=== PATIENT | female | born 1950 | race Caucasian/White ===

== ENCOUNTER 2017-01-13 22:14 | Emergency (ER) | payer MEDICARE, OTHER ==
[~2017-01-13] VITALS: Ht 157.5 cm; Wt 86.1 kg
[~2017-01-13 22:14] MED LIST: AMLO5TAB PO; ASPI-730 PO; ATEN-36 PO; CALC-586 PO; COLE625T10 PO; ISOS30TA29 PO; JOINT SUPPORT; LEVO125T71 PO; NITR0.3T6 SL; VITA1CAP64 PO; [UNRECOGNIZED DRUG - OTHER]
--- OUTSIDE RECORDS SUMMARY | 2017-01-13 22:17 | XMS REPORT | Referral Summary ---
Author Author [facility] Organization [facility] Address Unknown Phone Unavailable Care Team Providers Care Designated Broker Name Role Phone Josselin aPrson Primary Care Physician [phone] Encounter VC Date(s): 10/19/15 - 10/19/15 [facility] [address] [place], [place] [address] Discharge Disposition: 01-Home or Self Care Attending Physician: Aquiles Owusu MD Admitting Physician: Aquiles Owusu MD Vital Signs Most recent to 1 oldest [Reference Range]: Respiratory Rate 16 br/min [14-20 br/min] (10/19/15 2:26 PM) Problem List Condition Effective Dates Status Health Status Informant Abnormal involuntary 06/16/10 Active movements(Confirmed) 1 Othr abn function Active study 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(Confirmed) 2 Allergic Active rhinitis(Confirmed)3 Bilateral carpal Resolved tunnel release(Confirmed) Bilateral ulnar Resolved nerve decompression(Confir med) Bladder Active problem(Confirmed)4 Cerebrovascular Resolved accident(Confirmed) section Resolved x2(Confirmed) Chicken Resolved pox(Confirmed) Constipation(Confirm Active ed)5 Coronary Active arteriosclerosis (disorder)(Confirmed ) Coronary Active atherosclerosis(Conf irmed) Depression(Confirmed Active )6 Statin Active intolerance(Confirme d) Dry eyes(Confirmed) Active Follicular 10/20/13 Resolved adenoma-226; Lymphocytic thyroiditis-245.2(Co nfirmed)7 Hx of Angina/chest Resolved pain(Confirmed) Hyperlipidemia(Confi Resolved rmed) Hypertension(Confirm Resolved ed) Hysterectomy(Confirm Resolved ed) R knee Active pain(Confirmed) Lt knee scope Resolved x3(Confirmed) Skin Active cancer(Confirmed)8 Headaches - 1996 Active migraine(Confirmed)9 Non-toxic uninodular Active goiter (disorder)(Confirmed ) Osteoarthrosis site Active unspecified(Confirme d)10 Overweight(Confirmed Active )11 Pneumonia(Confirmed) Active 12 Pure Active hypercholesterolemia (Confirmed)13 Rt ankle torn Resolved tendon- Repaired(Confirmed) Rt knee 11/18/11 Resolved scope(Confirmed) Rt TKA [facility] 06/18/13 Resolved Bu[facility](Confirmed) Rt tknee 09/22/13 Resolved arthroscopic debridement WM [facility](Confirmed) Sinus Active infections(Confirmed )14 Disturbance of skin 03/04/12 Active sensation(Confirmed) 15 Fatty Active liver(Confirmed)16 Torn Active tendon(Confirmed) Headache - 1996 Active tension(Confirmed) Thyroid Resolved disease(Confirmed) Tonsillectomy and Resolved adenoidectomy(Confir med) 1Head tremor. See conversion document. 2See conversion document. 3See conversion document. 4See conversion document. 5See conversion document. 6See conversion document. 7Right thyroid lobectomy 8See conversion document. 9See conversion document. 10See conversion document. 11See conversion document. 12See conversion document. 13See conversion document. 14See conversion document. 15Lt hand numbness. Probable mild CTS. Bilateral upper extremity numbness. See conversion document. 16See conversion document. Allergies, Adverse Reactions, Alerts Substance Reaction Severity Status adenosine caused stroke Severe Active STROKE amoxicillin Intolerance Active caffeine Depression Active sulfamethoxazole Intolerance Active sulfanilamide topical Rash Active Medications amLODIPine 5 mg oral tablet See Instructions, TAKE 1 TABLET DAILY, # 90 tabs, 1 Refill(s), eRx: [facility], TAKE 1 TABLET DAILY Start Date: 06/13/15 Status: Ordered boric acid vaginal boric acid vaginal, See Instructions, 600mg Boric acid vaginal suppositories MF for 3-6 months., # 20 supp, 3 Refill(s), Pharmacy: [facility], 600mg Boric acid vaginal suppositories MF for 3-6 months. Start Date: 08/30/15 Status: Ordered boric acid vaginal boric acid vaginal, See Instructions, 600mg Boric acid vaginal suppositories MF for 3-6 months., # 20 supp, 3 Refill(s), 600mg Boric acid vaginal suppositories qhs x one week then in 2 weeks: MF for 3-6 months. Start Date: 03/31/15 Status: Ordered LEVOTHYRN(S) TAB 0.125MG See Instructions, TAKE 1 TABLET DAILY, # 90 tabs, 1 Refill(s), eRx: [facility], TAKE 1 TABLET DAILY Start Date: 06/13/15 Status: Ordered lidocaine 3% topical gel 1 ann, Topical, BID, as needed for pain, # 28.5 g, 0 Refill(s), Pharmacy: [facility] pharmacy #[id number] Start Date: 10/26/14 Status: Ordered metFORMIN 500 mg oral tablet 500 mg 1 tabs, Oral, Daily, # 90 tabs, 3 Refill(s), [id number], 1 tabs Oral Daily Start Date: 05/03/15 Status: Ordered Miscellaneous DME DME Item ACCU CHECK GLUCOSE METER, LANCETS, AND TEST STRIPS TEST Q AM - FASTING DX: 250.00, See Instructions, # 1 Each, 0 Refill(s), Pharmacy: [facility] pharmacy #[id number], ACCU CHECK GLUCOSE METER, LANCETS, AND TEST STRIPS; TEST Q AM - FASTING; DX: 250.00... Start Date: 02/03/15 Status: Ordered multivitamin Daily, 0 Refill(s) Start Date: 05/14/14 Status: Ordered nitroglycerin 0.3 mg, 0 Refill(s) Start Date: 04/12/14 Status: Ordered Welchol 625 mg oral tablet See Instructions, TAKE 6 TABLETS DAILY, # 540 tabs, 1 Refill(s), eRx: [facility], TAKE 6 TABLETS DAILY Start Date: 06/13/15 Status: Ordered Wellbutrin XL 150 mg/24 hours oral tablet, extended release 150 mg 1 tabs, Oral, q24hr, # 90 tabs, 3 Refill(s), [id number], 1 tabs Oral q24hr Start Date: 05/03/15 Status: Ordered Results No data available for this section Immunizations Vaccine Date Refusal Reason tetanus/diphth/pertuss (Tdap) adult/adol 05/19/13 influenza virus vaccine, inactivated1 10/05/14 influenza virus vaccine, live 08/12/13 influenza virus vaccine, live 10/19/11 pneumococcal 23-polyvalent vaccine 08/12/13 1Result Comment: [10/05/2014] SEE SCANNED DOCUMENT Procedures Procedure Date Related Diagnosis Body Site R knee artroscopic debridement1 2012 Right thyroid lobectomy2 2012 Total knee replacement 2013 R knee scope3 11/18/11 R ankle surgery4 2009 Abnormal stress test Adenoidectomy Appendectomy; Bilateral carpal tunnel release Bilateral ulnar nerve decompression section Hysterectomy L knee scope x35 Tonsillectomy 1[facility]. See NextGen. 2Follicular adenoma, lymphocytic thyroiditis. See NextGen. 3See NextGen. 4Torn tendon. See NextGen. 5See NextGen. Social History Social History Type Response Smoking Status Never smoker Assessment and Plan Extracted from: Title: Office Visit Note Author: Aquiles Owusu MD Date: 10/19/15 Assessment/Plan Right knee pain 65-year-old female with right knee pain and stiffness after a total knee replacement. She also has significant arthrofibrosis, I suspect. We again discussed possible treatment options for this and etiologies. I think most of her trouble has to do with her poor range of motion. Certainly she is stressing her extensor apparatus. She asked about doing another arthroscopy and manipulation, however I am pretty skeptical that this would help much. 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 My recommendation would be to get a bone scan to make sure nothing is loose. I will let her know what that shows once we get that back. We did talk about trying an intra-articular steroid injection to see if this might help at some point. Ordered: [facility] Office Visit Level 3 Est 86233
--- OUTSIDE RECORDS SUMMARY | 2017-01-13 22:18 | XMS REPORT | Continuity of Care Document ---
Author Author [facility] Address [address] [place] [id number] Phone Unavailable Care Team Providers Care Extra Hand Name Role Phone Aleksandar Parson PP Unavailable Richard Mo RP Unavailable Payers Payer name Insurance type Covered green party ID Authorization(s) Unknown Problems Condition Effective Dates (start - stop) Clinical Status Acute postoperative pain of knee - *Acute Other acute postoperative pain - *Acute Leg cramps - *Acute HYPOTHYROIDISM NOS - PURE HYPERCHOLESTEROLEM - HYPERTENSION NOS - ANGINA PECTORIS NEC/NOS - 436 - CVA - ALLERGIC RHINITIS NOS - OSTEOARTHROS NOS-UNSPEC - ABN INVOLUN MOVEMENT NEC - SKIN SENSATION DISTURB - ABN 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 FUNCT STUDY NEC - Bronchitis, Acute - *Acute Malignant neoplasm of thyroid gland - *Acute Gynecological examination - *Routine Decreased libido - *Acute Routine Medical Exam - *Routine NEED FOR PROPHYLACTIC VACCINATION WITH COMBINED [id number] ( DTP) (DTAP) VACCINE - Pneumonia Vaccine - Sexual dysfunction - *Acute Elevated liver enzymes - Persistent Hypertension, Unspecified - *Poor control Influenza Vaccine - Pain in joint, lower leg - *Worse Abnormal Cardiovascular Study - *Stable Coronary atherosclerosis - *Stable Chest Tightness - *Chronic Other and unspecified hyperlipidemia - *Chronic DRUG ALLERGY NEC - *Chronic Primary osteoarthritis of right knee - *Symptomatic Medial meniscus tear - *Symptomatic Follicular cancer of thyroid - *Acute Blepharitis, unspecified - *Acute Conjunctivitis, unspecified - *Acute Osteoarthrosis, localized, not specified whether primary or secondary, involving lower leg - Healing Pharyngitis, Acute - *Acute Preoperative examination, unspecified - *Stable Conjunctivitis, unspecified - *Acute Knee joint replacement - *Stable Follow-up examination, following other surgery - Acute Edema - *Acute Other and unspecified hyperlipidemia - *Chronic Bronchitis, Acute - *Acute Other and unspecified hyperlipidemia - *Uncontrolled Nontoxic uninodular goiter - *Acute Hypercholesterolemia - *Chronic Chronic chest pain - *Chronic Acute, but ill-defined, cerebrovascular disease - *Chronic Hypertension, Unspecified - *Chronic Paresthesia of arm - *Chronic Statin intolerance - *Chronic Memory impairment - *Chronic Follicular adenoma - *Resolved Allergic rhinitis, cause unspecified - Recurrent Pain in joint, lower leg - *Acute Osteoarthrosis, localized, not specified whether primary or secondary, involving lower leg - *Chronic Primary osteoarthritis of one knee - *Symptomatic Medial meniscus tear - *Symptomatic Family History Family Member Diagnosis Age At Onset Status Sister (Unknown) Diabetes Yes Father (Unknown) Cancer Yes Sister (Unknown) Hyperlipidemia Yes Sister (Unknown) Renal disease Yes Mother (Unknown) Cancer - skin Yes Sister (Unknown) Hypertension Yes Son (Unknown) Hypertension Yes Son (Unknown) Diabetes Yes Father (Unknown) COPD Yes Mother (Unknown) CVA (Stroke) Yes Social History Social History Element Description Quantity Unknown Allergies, Adverse Reactions, Alerts Substance Reaction Severity Status ADENOSINE caused stroke Unknown SULFANILAMIDE Rash Unknown ADENOSINE STROKE severe THALLIUM-201 heart attack per pt. Unknown SULFA (SULFONAMIDE ANTIBIOTICS) Intolerance Unknown AMOXICILLIN Intolerance Unknown CAFFEINE Depression Unknown Medications Medication Instructions Dosage Effective Dates (start - stop) Status baclofen 20 mg tablet take 1 tablet (20MG) by oral route 4 times every day 20 MG - No Longer Active Nitrostat 0.[address] ONE TAB UNDER TONGUE EVERY 5 MINUTES AT ONSET OF CHEST PAIN MAXIMUM OF THREE TABS - Active wheelchair USE NEEDED. - Active Tylenol 325 mg tablet take 1 tablet (325MG) by oral route every 4 hours as needed 325 MG - Active Patanol 0.1 % Eye Drops instill 1 drop by ophthalmic route 2 times every day into affected eye(s) for eye redness - Active Levaquin 500 mg tablet take 1 tablet (500MG) by oral route every 24 hours 500 MG - Active Dilaudid 2 mg tablet take 1 tablet (2MG) by oral route every 4 hours as needed as needed 2 MG - Active amlodipine 5 mg tablet Take 1 tablet by mouth every day. - Active Tirosint 125 mcg capsule take 1 capsule (125MCG) by oral route every day 125 MCG - Active lidocaine 2 % Mucosal Gel Apply small amount to posterior vagina as directed. - Active baclofen 20 mg tablet take 1 tablet (20MG) by oral route 4 times every day 20 MG - Active Immunizations Vaccine Date Status Comments Tdap (Boostrix r) completed Pneumo (2 yrs or older)(PPV) completed Flu (split) (3 yrs or older) completed Pneumo (2 yrs or older)(PPV) cancelled - Cancelled reason: Duplicate order. flu (split) (3 yrs or older) completed - Completed reason: source unspecified Results Test Name Date and Time Measure Units Reference Range Abnormal Flag Comments Unknown Vital Signs Date / Time: Height Weight Pulse Rate Blood Pressure Temperature /10:57:00 61.69 in 175.00 lbs 68 /min 148/94 mm[Hg] Procedures Procedure Date Unknown Encounters Encounter Location Date Patient Visit [facility] E21 Patient Visit Conversion Patient Visit [facility] E21 Patient Visit [facility] Patient Visit [facility] E21 Patient Visit [facility] Patient Visit [facility] E21 Patient Visit [facility] E21 Patient Visit [facility] E21 OB Patient Visit [facility] E21 Patient Visit [facility] E21 Patient Visit [facility] E21 Patient Visit [facility] Patient Visit [facility] Patient [facility] Patient Visit [facility] E21 Patient Visit [facility] E21 Patient Visit [facility] E21 Patient Visit [facility] Patient Visit [facility] Mur Endo Patient Visit [facility] Patient Visit [facility] Surg Patient Visit [facility] E21 Patient [facility] Patient [facility] Ortho Patient Visit Patient Visit [facility] E21 Patient Visit [facility] Advance Directives Directive Effective Date Unknown
--- OUTSIDE RECORDS SUMMARY | 2017-01-13 22:18 | XMS REPORT | Referral Summary ---
Author Author [facility] Organization [facility] Address Unknown Phone Unavailable Care Team Providers Care Jewish History Professor Name Role Phone Josselin Parson Primary Care Physician [phone] Encounter VC Date(s): 04/02/16 - 04/02/16 [facility] Medicine [address] [place] [id number] Discharge Diagnosis: Rash Discharge Disposition: 01-Home or Self Care Attending Physician: Aleksandar Parson DO Admitting Physician: Aleksandar Parson DO Vital Signs Most recent to 1 oldest [Reference Range]: Temperature Oral 36.5 degC [35.8-37.3 degC] (04/02/16 11:24 AM) Peripheral Pulse 71 bpm Rate [60-100 bpm] (04/02/16 11:24 AM) Blood Pressure 140/82 mmHg [90-140/60-90 mmHg] (04/02/16 11:24 AM) SpO2 97 % (04/02/16 11:24 AM) Problem List Condition Effective Dates Status Health Status Informant Abnormal involuntary 06/16/10 Active movements(Confirmed) 1 Othr abn function Active study brain/[employer](Confirmed) 2 Allergic Active rhinitis(Confirmed)3 Bilateral carpal Resolved [...] TAKE 1 TABLET DAILY, # 90 tabs, 2 Refill(s), [id number], TAKE 1 TABLET DAILY Start Date: 12/13/15 Status: Ordered boric acid vaginal boric acid vaginal, See Instructions, 600mg Boric acid vaginal suppositories MF for 3-6 months., # 20 supp, 3 Refill(s), Pharmacy: [facility], 600mg Boric acid vaginal suppositories MF for 3-6 months. Start Date: 08/30/15 Status: Ordered boric acid vaginal boric acid vaginal, See Instructions, 600mg Boric acid vaginal suppositories MF for 3-6 months., # 20 supp, 3 Refill(s), Pharmacy: [facility], 600mg Boric acid vaginal suppositories MF for 3-6 months. Start Date: 10/27/15 Status: Ordered hydrocortisone 2.5% topical lotion 1 ann, Topical, BID, # 120 mL, 0 Refill(s), Pharmacy: [facility] [id number] Start Date: 04/02/16 Stop Date: 04/18/16 Status: Ordered lidocaine 3% topical gel 1 ann, Topical, BID, as needed for pain, # 28.5 g, 0 Refill(s), Pharmacy: [facility] pharmacy #[id number] Start Date: 10/27/15 Status: Ordered metFORMIN 500 mg oral tablet 500 mg 1 tabs, Oral, Daily, # 90 tabs, 3 Refill(s), Pharmacy: [facility] # [id number], 1 tabs Oral Daily Start Date: 05/03/15 Status: Ordered Miscellaneous DME DME Item ACCU CHECK GLUCOSE METER, LANCETS, AND TEST STRIPS TEST Q AM - FASTING DX: 250.00, See Instructions, # 1 Each, 0 Refill(s), Pharmacy: [facility]/ pharmacy #[id number], ACCU CHECK GLUCOSE METER, LANCETS, AND TEST STRIPS; TEST Q AM - FASTING; DX: 250.00... Start Date: 02/03/15 Status: Ordered multivitamin Daily, 0 Refill(s) Start Date: 05/14/14 Status: Ordered nitroglycerin 0.3 mg sublingual tablet 0.3 mg, SubLingual, q5min, not to exceed 3 doses/15 min--if pain persists, seek medical attention, # 10 tabs, 0 Refill(s), Pharmacy: [facility]/pharmacy #[id number], 0.3 mg SubLingual q5min,Instr:not to exceed 3 doses/15 min--if pain persists, seek medical attention Start Date: 10/27/15 Status: Ordered Synthroid 125 mcg (0.125 mg) oral tablet 125 mcg 1 tabs, Oral, Daily, # 90 tabs, 2 Refill(s), Pharmacy: [facility] [id number], 1 tabs Oral Daily Start Date: 12/13/15 Status: Ordered Welchol 625 mg oral tablet See Instructions, TAKE 6 TABLETS DAILY, # 540 tabs, 1 Refill(s), eRx: [facility], TAKE 6 TABLETS DAILY Start Date: 06/13/15 Status: Ordered Wellbutrin XL 150 mg/24 hours oral tablet, extended release 150 mg 1 tabs, Oral, q24hr, # 90 tabs, 3 Refill(s), Pharmacy: [facility]/pharmacy # [id number], 1 tabs Oral q24hr Start Date: 05/03/15 Status: Ordered Results No data available for this section Immunizations Vaccine Date Refusal Reason tetanus/diphth/pertuss (Tdap) adult/adol 05/19/13 influenza virus vaccine, inactivated 10/26/15 influenza virus vaccine, inactivated1 10/05/14 influenza virus vaccine, live 08/12/13 influenza virus vaccine, live 10/19/11 pneumococcal 13-valent conjugate vaccine 10/26/15 pneumococcal 23-polyvalent vaccine 08/12/13 zoster vaccine live 10/26/15 1Result Comment: [10/05/2014] SEE SCANNED DOCUMENT Procedures Procedure Date Related Diagnosis Body Site R knee artroscopic debridement1 2012 Right thyroid lobectomy2 2012 Total knee replacement 2013 R knee scope3 11/18/11 R ankle surgery4 2009 Abnormal stress test Adenoidectomy Appendectomy; Bilateral carpal tunnel release Bilateral ulnar nerve decompression section Hysterectomy L knee scope x35 Tonsillectomy 1[facility]. See NextGen. 2Follicular adenoma, lymphocytic thyroiditis. See NextGen. 3See NextGen. 4Torn tendon. See NextGen. 5See NextGen. Social History Social History Type Response Smoking Status Never smoker Assessment and Plan Extracted from: Title: Office Visit Note Author: Aleksandar Parson DO Date: 04/02/16 Assessment/Plan 1.Rash Appears be eczematous type of rash Cranial lotion 2.5 percent twice a day Zyrtec twice a day If no resolutionconsider dermatology evaluation Orders: hydrocortisone topical, 1 ann, Topical, BID, # 120 mL, 0 Refill(s), Pharmacy: [facility] [id number]
--- OUTSIDE RECORDS SUMMARY | 2017-01-13 22:18 | XMS REPORT | Continuity of Care Document ---
Author Author Joaquin RN, Sheri K Organization Ambulatory Address [address] [place] [address] Phone Care Team Providers Care Magnetic Doctor Name Role Phone Aleksandar Parson PP Unavailable Richard Mo RP Unavailable Payers Payer name Insurance type Covered constitution party ID Authorization(s) Unknown Problems Condition Effective Dates (start - stop) Clinical Status Pain in joint involving lower leg - *Chronic HYPOTHYROIDISM NOS - PURE HYPERCHOLESTEROLEM - HYPERTENSION NOS - ANGINA PECTORIS NEC/NOS - 436 - CVA - ALLERGIC RHINITIS NOS - OSTEOARTHROS NOS-UNSPEC - ABN INVOLUN MOVEMENT NEC - SKIN SENSATION DISTURB - ABN PROPERTY COORDINATOR FUNCT STUDY NEC - Bronchitis, Acute - Recurrent Sinusitis, Acute - Recurrent Hyperactive airway disease - Persistent Cough - Persistent Gynecological examination - *Routine Decreased libido - *Acute Routine Medical Exam - *Routine NEED FOR PROPHYLACTIC VACCINATION WITH COMBINED [id number] ( DTP) (DTAP) VACCINE - Pneumonia Vaccine - Sexual dysfunction - *Acute Elevated liver enzymes - Persistent Hypertension, Unspecified - *Poor control Influenza Vaccine - Other and unspecified hyperlipidemia - *Chronic Nontoxic uninodular goiter - *Controlled Bronchitis, Acute - *Acute Pain in joint, lower leg - *Worse Abnormal Cardiovascular Study - *Stable Coronary atherosclerosis - *Stable Chest Tightness - *Chronic Other and unspecified hyperlipidemia - *Chronic DRUG ALLERGY NEC - *Chronic Bronchitis, Acute - *Acute Cough - Persistent Cervicalgia - *Acute Nonallopathic lesions of cervical region, not elsewhere classified 2012 - *Acute Nonallopathic lesions of thoracic region, not elsewhere classified 2012 - *Acute Primary osteoarthritis of right knee - *Symptomatic Medial meniscus tear - *Symptomatic Follicular cancer of thyroid - *Acute Blepharitis, unspecified - *Acute Conjunctivitis, unspecified - *Acute Osteoarthrosis, localized, not specified whether primary or secondary, involving lower leg - Healing Pharyngitis, Acute - *Acute Preoperative examination, unspecified - *Stable Conjunctivitis, unspecified - *Acute Malignant neoplasm of thyroid gland - *Acute Knee joint replacement - *Stable Follow-up examination, following other surgery - Acute Edema - *Acute Bronchitis, acute - Improved Sore mouth - *Acute Unspecified adverse effect of drug, medicinal and biological substance, not elsewhere classified - *Acute Other and unspecified hyperlipidemia - *Chronic Bronchitis, Acute - *Acute Other and unspecified hyperlipidemia - *Uncontrolled Nontoxic uninodular goiter - *Acute Hypercholesterolemia - *Chronic Chronic chest pain - *Chronic Acute, but ill-defined, cerebrovascular disease - *Chronic Hypertension, Unspecified - *Chronic Paresthesia of arm - *Chronic Statin intolerance - *Chronic Memory impairment - *Chronic Follicular adenoma - *Resolved Muscle cramps - Persistent Fatigue / Malaise - Persistent Nonallopathic lesions of cervical region, not elsewhere classified 2012 - Improved Nonallopathic lesions of thoracic region, not elsewhere classified 2012 - Improved Nonallopathic lesions of lumbar region, not elsewhere classified - Improved Allergic rhinitis, cause unspecified - Recurrent Pain in joint, lower leg - *Acute Nonallopathic lesions of lumbar region, not elsewhere classified - Improved Nonallopathic lesions of thoracic region, not elsewhere classified 2012 - Improved Nonallopathic lesions of cervical region, not elsewhere classified 2012 - Improved Osteoarthrosis, localized, not specified whether primary or secondary, involving lower leg - *Chronic Primary osteoarthritis of one knee - *Symptomatic Medial meniscus tear - *Symptomatic Acute postoperative pain of knee - *Acute Other acute postoperative pain - *Acute Leg cramps - *Acute Family History Family Member Diagnosis Age At [...] Dosage Effective Dates (start - stop) Status ibuprofen 800 mg tablet take 1 tablet (800MG) by oral route twice a day with food - Active Dilaudid 2 mg tablet take 1 tablet (2MG) by oral route every 4 hours as needed as needed 2 MG - No Longer Active Nitrostat 0.[address] ONE TAB UNDER TONGUE EVERY 5 MINUTES AT ONSET OF CHEST PAIN MAXIMUM OF THREE TABS - Active wheelchair USE NEEDED. - Active Tylenol 325 mg tablet take 1 tablet (325MG) by oral route every 4 hours as needed 325 MG - Active Patanol 0.1 % eye drops instill 1 drop by ophthalmic route 2 times every day into affected eye(s) for eye redness - Active amlodipine 5 mg tablet Take 1 tablet by mouth every day. - Active Tirosint 125 mcg capsule take 1 capsule (125MCG) by oral route every day 125 MCG - Active lidocaine 2 % mucosal gel Apply small amount to posterior vagina as directed. - Active WelChol 625 mg tablet take 3 Tablet (1875MG) by oral route 2 times every day with a meal and liquid 1875 MG - Active Levaquin 500 mg tablet take 1 tablet (500MG) by oral route every 24 hours 500 MG - Active baclofen 20 mg tablet take 1 tablet (20MG) by oral route 4 times every day 20 MG - Active albuterol sulfate 2.5 mg/3 mL (0.083 %) solution for nebulization inhale 3 milliliter (2.5MG) by nebulization route 4 times every day 2.5 MG 2013 - Active Immunizations Vaccine Date Status Comments [...] Height Weight Pulse Rate Blood Pressure Temperature /08:28:00 63.54 in 177.00 lbs Procedures Procedure Date Unknown Encounters Encounter Location Date Patient Visit [facility] Ortho Patient Visit Conversion Patient Visit [facility] Patient Visit [facility] Patient Visit [address] Patient Visit [address] Patient Visit [facility] Patient Visit [address] Patient Visit [facility] Patient Visit [facility] Patient Visit [facility] Visit [facility] Patient Visit [facility] Patient Visit [facility] Patient Visit [facility] Patient Visit [facility] Patient Visit [facility]21 Patient Visit [facility] [place] Patient Visit [facility] Surg Patient Visit [facility]21 Patient Visit [facility] Ortho Patient Visit [facility] Patient Visit [facility]21 Patient Visit [facility]21 Patient Visit [facility] ASC Patient Visit [facility] Ortho Patient Visit [facility]21 Patient Visit [facility]21 Patient [facility] Patient Visit [facility] Surg Patient Visit [facility] E21 Patient Visit [facility] Ortho Patient Visit [facility] Advance Directives Directive Effective Date Unknown
--- OUTSIDE RECORDS SUMMARY | 2017-01-13 22:19 | XMS REPORT | Referral Summary ---
Author Organization Unknown Address Unknown Phone Unavailable Care Team Providers Care Leather Polisher Name Role Phone Josselin Parson Primary Care Physician [phone] Encounter VC Date(s): 12/07/14 - 12/07/14 [facility] [address], [place] [address] Discharge Diagnosis: Urinary tract infection Discharge Diagnosis: Sinusitis Discharge Diagnosis: Dysuria Discharge Disposition: Home or Self Care Attending Physician: Aleksandar Parson DO Admitting Physician: Aleksandar Parson DO Vital Signs Most recent to 1 oldest [Reference Range]: Temperature Oral 36.4 degC [35.8-37.3 degC] (12/07/14 3:54 PM) Peripheral Pulse 72 bpm Rate [60-100 bpm] (12/07/14 3:54 PM) Blood Pressure 128/88 mmHg [90-140/60-90 mmHg] (12/07/14 3:54 PM) Problem List Condition Effective Dates Status Health Status Informant Abnormal involuntary 06/16/10 Active movements(Confirmed) 1 Othr abn function Active 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) 2 Allergic Active rhinitis(Confirmed)3 Bilateral carpal Resolved [...] Buhr(Confirmed) Rt tknee 09/22/13 Resolved arthroscopic debridement [facility] Buhr(Confirmed) Sinus Active infections(Confirmed )14 Disturbance of [...] Active Medications amLODIPine 5 mg oral tablet 1 tabs, Oral, Daily, # 90 tabs, 1 Refill(s), Pharmacy: [facility] [place], 1 tabs Oral Daily Start Date: 10/06/14 Status: Ordered baclofen 20 mg oral tablet See Instructions, TAKE 1 TABLET (20MG) BY ORAL ROUTE 4 TIMES EVERY DAY, # 30 tabs, 1 Refill(s), eRx: [facility]/pharmacy #[id number], TAKE 1 TABLET (20MG) BY ORAL ROUTE 4 TIMES EVERY DAY Special Instructions: TAKE 1 TABLET (20MG) BY ORAL ROUTE 4 TIMES EVERY DAY Start Date: 08/04/14 Status: Ordered colesevelam 625 mg oral tablet 6 tabs, Oral, Daily, # 540 tabs, 1 Refill(s), Pharmacy: [facility], 6 tabs Oral Daily,x90 days Start Date: 10/06/14 Stop Date: 04/04/15 Status: Ordered Levaquin 500 mg oral tablet 1 tabs, Oral, q24hr, X 10 days, # 10 tabs, 0 Refill(s), [id number], 1 tabs Oral q24hr,x10 days Start Date: 12/07/14 Stop Date: 12/17/14 Status: Ordered levothyroxine 125 mcg (0.125 mg) oral tablet 1 tabs, Oral, Daily, # 90 tabs, 1 Refill(s), Pharmacy: [facility], 1 tabs Oral Daily Start Date: 10/06/14 Status: Ordered lidocaine 3% topical gel 1 ann, Topical, BID, as needed for pain, # 28.5 g, 0 Refill(s), Pharmacy: [facility] pharmacy #[id number] Start Date: 10/26/14 Status: Ordered multivitamin Daily, 0 Refill(s) Start Date: 05/14/14 Status: Ordered nitroglycerin 0.3 mg, 0 Refill(s) Start Date: 04/12/14 Status: Ordered Results Urinalysis Most recent to 1 oldest [Reference Range]: UA Color Yellow (12/07/14 4:00 PM) UA Appear Clear (12/07/14 4:00 PM) UA pH [5.0-8.0] 7.0 (12/07/14 4:00 PM) UA Leuk Est Pos 1+ [Negative] *ABN* (12/07/14 4:00 PM) UA Nitrite Negative [Negative] (12/07/14 4:00 PM) UA Protein Trace [Negative] *ABN* (12/07/14 4:00 PM) UA Glucose Negative [Negative] (12/07/14 4:00 PM) UA Ketones Negative [Negative] (12/07/14 4:00 PM) UA Urobilinogen 0.2 mg/dL (12/07/14 4:00 PM) UA Bili [Negative] Negative (12/07/14 4:00 PM) UA Blood Negative (12/07/14 4:00 PM) UA Spec Grav 1.020 [1.003-1.030] (12/07/14 4:00 PM) Type Cl Catch (12/07/14 4:00 PM) UA WBC [0-4] 5-10 *ABN* (12/07/14 4:00 PM) UA RBC [0-2] 0-2 (12/07/14 4:00 PM) Epithelial Cells 0-2 (12/07/14 4:00 PM) UA Hyal Cast [0-3] 1-3 (12/07/14 4:00 PM) Immunizations Vaccine Date Refusal Reason tetanus/diphth/pertuss (Tdap) adult/adol 05/19/13 influenza virus vaccine, inactivated1 10/05/14 influenza virus vaccine, live 08/12/13 influenza virus vaccine, live 10/19/11 pneumococcal 13-valent conjugate vaccine 08/12/13 1Result Comment: [10/05/2014] SEE SCANNED DOCUMENT Procedures Procedure Date Related Diagnosis Body Site R knee artroscopic debridement1 2012 Right thyroid lobectomy2 2012 Total knee replacement 2012 R knee scope3 11/18/11 R ankle surgery4 2009 Abnormal stress test Adenoidectomy Appendectomy; Bilateral carpal tunnel release Bilateral ulnar nerve decompression section Hysterectomy L knee scope x35 Tonsillectomy 1[facility]. See NextGen. 2Follicular adenoma, lymphocytic thyroiditis. See NextGen. 3See NextGen. 4Torn tendon. See NextGen. 5See NextGen. Social History Social History Type Response Smoking Status Never smoker Assessment and Plan Extracted from: Title: Office Visit Note Author: Aleksandar Prason DO Date: 12/07/14 Assessment/Plan Dysuria Ordered: levofloxacin, 1 tabs, Oral, q24hr, X 10 days, # 10 tabs, 0 Refill(s), Pharmacy : [id number], 1 tabs Oral q24hr,x10 days Sinusitis Levaquin 500 mg daily Mucinex D Vicks nose spray Urinary tract infection As above Push fluids Orders: Urinalysis Microscopic Urine Culture
--- OUTSIDE RECORDS SUMMARY | 2017-01-13 22:19 | XMS REPORT | Referral Summary ---
Author Author [facility] Organization [facility] Address Unknown Phone Unavailable Care Team Providers Care Wood Ski Maker Name Role Phone Josselin Parson Primary Care Physician [phone] Encounter [facility] [id number] Date(s): 08/30/16 - 08/30/16 [facility] [address] [place] [id number] Discharge Disposition: 01-Home or Self Care Attending Physician: Malia Ousna PA-C Admitting Physician: Malia Osuna PA-C Vital Signs Most recent to 1 oldest [Reference Range]: Peripheral Pulse 81 bpm Rate [60-100 bpm] (08/30/16 11:03 AM) Blood Pressure 144/70 mmHg [90-140/60-90 mmHg] *HI* (08/30/16 11:03 AM) SpO2 96 % (08/30/16 11:03 AM) Problem List Condition Effective Dates Status Health Status Informant Abnormal involuntary 06/16/10 Active movements(Confirmed) 1 Othr abn function 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) 2 Allergic Active rhinitis(Confirmed)3 Bilateral carpal Resolved tunnel release(Confirmed) Bilateral ulnar Resolved nerve decompression(Confir med) Bladder Active problem(Confirmed)4 Cerebrovascular Resolved accident(Confirmed) section Resolved x2(Confirmed) Chicken Resolved pox(Confirmed) Constipation(Confirm Active ed)5 Coronary Active arteriosclerosis (disorder)(Confirmed ) Coronary Active atherosclerosis(Conf irmed) Depression(Confirmed Active )6 Statin Active intolerance(Confirme d) Dry eyes(Confirmed) Active Follicular 10/20/13 Resolved adenoma-226; Lymphocytic thyroiditis-245.2(Co nfirmed)7 Hx of Angina/chest Resolved pain(Confirmed) Hyperlipidemia(Confi Active rmed) Hypertension(Confirm Resolved ed) Hypothyroidism(Confi Active rmed) Hysterectomy(Confirm Resolved ed) R knee Active pain(Confirmed) [...] Buhr(Confirmed) Rt tknee 09/22/13 Resolved arthroscopic debridement [facility] Buhr(Confirmed) Sinus Active infections(Confirmed )14 Disturbance of skin 03/04/12 Active sensation(Confirmed) 15 Fatty Active liver(Confirmed)16 Torn Active tendon(Confirmed) Headache - 1996 Active tension(Confirmed) Thyroid Resolved disease(Confirmed) Thyroid Active nodule(Confirmed) Tonsillectomy and Resolved adenoidectomy(Confir med) 1Head tremor. [...] DAILY, # 90 tabs, 2 Refill(s), Pharmacy: [id number], TAKE 1 TABLET DAILY Start Date: 12/13/15 Status: Ordered boric acid vaginal boric acid vaginal, See Instructions, 600mg Boric acid vaginal suppositories MF for 3-6 months., # 20 supp, 3 Refill(s), Pharmacy: [facility], 600mg Boric acid vaginal suppositories MF for 3-6 months. Start Date: 08/30/15 Status: Ordered buPROPion 150 mg/24 hours (XL) oral tablet, extended release See Instructions, TAKE 1 TABLET BY MOUTH EVERY DAY, # 90 tabs, 1 Refill(s), eRx : [email or web address] [id number], TAKE 1 TABLET BY MOUTH EVERY DAY Start Date: 07/09/16 Status: Ordered Cipro 250 mg oral tablet 250 mg 1 tabs, Oral, q12hr, X 7 days, # 14 tabs, 0 Refill(s), Pharmacy: [id number], 1 tabs Oral q12hr,x7 days Start Date: 08/30/16 Stop Date: 09/06/16 Status: Ordered lidocaine 3% topical gel 1 ann, Topical, BID, as needed for pain, # 28.5 g, 0 Refill(s), Pharmacy: [facility] pharmacy #[id number] Start Date: 10/27/15 Status: Ordered metFORMIN 500 mg oral tablet 500 mg 1 tabs, Oral, Daily, # 90 tabs, 3 Refill(s), Pharmacy: [facility] # [id number], 1 tabs Oral Daily Start Date: 05/03/15 Status: Ordered Miscellaneous DME DME Item ACCU CHECK GLUCOSE METER, LANCETS, AND TEST STRIPS TEST Q AM - FASTING DX: 250.00, See Instructions, # 1 Each, 0 Refill(s), Pharmacy: [facility]/ pharmacy #[id number], ACCU CHECK GLUCOSE METER, LANCETS, AND TEST STRIPS; TEST Q AM - FASTING; DX: 250.00... Start Date: 02/03/15 Status: Ordered nitroglycerin 0.3 mg sublingual tablet 0.3 mg, SubLingual, q5min, not to exceed 3 doses/15 min--if pain persists, seek medical attention, # 10 tabs, 0 Refill(s), [id number], 0.3 mg SubLingual q5min,Instr:not to exceed 3 doses/15 min--if pain persists, seek medical attention Start Date: 10/27/15 Status: Ordered Synthroid 125 mcg (0.125 mg) oral tablet 125 mcg 1 tabs, Oral, Daily, # 90 tabs, 2 Refill(s), Pharmacy: [id number], 1 tabs Oral Daily Start Date: 12/13/15 Status: Ordered Welchol 625 mg oral tablet See Instructions, TAKE 6 TABLETS DAILY, # 540 tabs, 1 Refill(s), Pharmacy: [id number], TAKE 6 TABLETS DAILY Start Date: 07/06/16 Status: Ordered Zithromax Z-Francisco 250 mg oral tablet 1 packets, Oral, Daily, as directed on package labeling, X 5 days, # 6 tabs, 0 Refill(s), Pharmacy: [id number], 1 packets Oral Daily,x5 days, Instr:as directed on package labeling Start Date: 08/27/16 Stop Date: 09/01/16 Status: Ordered Results Urinalysis Most recent to 1 oldest [Reference Range]: UA Color Yellow (08/30/16 12:20 PM) UA Appear Sl Cloudy (08/30/16 12:20 PM) UA pH [5.0-8.0] 5.5 (08/30/16 12:20 PM) UA Leuk Est Pos 1+ [Negative] *ABN* (08/30/16 12:20 PM) UA Nitrite Negative [Negative] (08/30/16 12:20 PM) UA Protein Pos 1+ [Negative] *ABN* (08/30/16 12:20 PM) UA Glucose Negative [Negative] (08/30/16 12:20 PM) UA Ketones Negative [Negative] (08/30/16 12:20 PM) UA Urobilinogen 0.2 mg/dL [<=1.0 mg/dL] (08/30/16 12:20 PM) UA Bili [Negative] Positive *ABN* (08/30/16 12:20 PM) UA Blood [Negative] Negative (08/30/16 12:20 PM) UA Spec Grav >=1.030 [1.003-1.030] (08/30/16 12:20 PM) Type Clean Catch (08/30/16 12:20 PM) UA WBC [0-4] 20-50 *ABN* (08/30/16 12:20 PM) Epithelial Cells 0-2 (08/30/16 12:20 PM) Crystals Ca Ox (08/30/16 12:20 PM) UA Hyal Cast [0-3] 4-6 *ABN* (08/30/16 12:20 PM) Immunizations Vaccine Date Refusal Reason tetanus/diphth/pertuss [...] section Hysterectomy L knee scope x35 Tonsillectomy 1[facility]. See NextGen. 2Follicular adenoma, lymphocytic thyroiditis. See NextGen. 3See NextGen. 4Torn tendon. See NextGen. 5See NextGen. Social History Social History Type Response Smoking Status Never smoker Assessment and Plan No data available for this section
--- OUTSIDE RECORDS SUMMARY | 2017-01-13 22:19 | XMS REPORT | Referral Summary ---
Author Author [facility] Organization [facility] Address Unknown Phone Unavailable Care Team Providers Care Deaf And Hard Of Hearing Teacher Name Role Phone Josselin Parson Primary Care Physician [phone] Encounter VC Date(s): 11/27/16 - 11/27/16 [facility] [address] [place] [address] [facility] Discharge Diagnosis: Hypothyroidism Discharge Diagnosis: Hyperlipidemia Discharge Disposition: 01-Home or Self Care Attending Physician: Richard Mo MD Admitting Physician: Richard Mo MD Vital Signs Most recent to 1 oldest [Reference Range]: Peripheral Pulse 88 bpm Rate [60-100 bpm] (11/27/16 12:10 PM) Blood Pressure 148/70 mmHg [90-140/60-90 mmHg] *HI* (11/27/16 12:10 PM) Problem List Condition Effective Dates Status Health Status Informant Abnormal involuntary 06/16/10 Active movements(Confirmed) 1 Othr abn function Active 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) 2 Allergic Active rhinitis(Confirmed)3 Bilateral carpal Resolved tunnel release(Confirmed) Bilateral ulnar Resolved nerve decompression(Confir med) Bladder Active problem(Confirmed)4 Cerebrovascular Resolved accident(Confirmed) section Resolved x2(Confirmed) Chicken Resolved pox(Confirmed) Constipation(Confirm Active ed)5 Coronary Active arteriosclerosis (disorder)(Confirmed ) Coronary Active atherosclerosis(Conf irmed) Depression(Confirmed Active )6 Statin Active intolerance(Confirme d) Dry eyes(Confirmed) Active Follicular 10/20/13 Resolved adenoma-226; Lymphocytic thyroiditis-245.2(Co nfirmed)7 Hx of Angina/chest Resolved pain(Confirmed) Hypertension(Confirm Resolved ed) Hypothyroidism(Confi Active rmed) Hysterectomy(Confirm Resolved ed) R knee Active pain(Confirmed) Lt knee scope Resolved x3(Confirmed) Skin Active cancer(Confirmed)8 Headaches - 1996 Active migraine(Confirmed)9 Hyperlipidemia(Confi Active rmed) Non-toxic uninodular Active goiter (disorder)(Confirmed ) Osteoarthrosis site Active unspecified(Confirme d)10 Overweight(Confirmed Active )11 Pneumonia(Confirmed) Active 12 Pure Active hypercholesterolemia (Confirmed)13 Rt ankle torn Resolved tendon- Repaired(Confirmed) Rt knee 11/18/11 Resolved scope(Confirmed) Rt TKA [facility] 06/18/13 Resolved Buhr(Confirmed) Rt tknee 09/22/13 Resolved arthroscopic debridement [facility] Buhr(Confirmed) Sinus Active infections(Confirmed )14 [...] DAILY, # 90 tabs, 2 Refill(s), Pharmacy: [id number], TAKE 1 TABLET DAILY Start Date: 12/13/15 Status: Ordered boric acid vaginal boric acid vaginal, See Instructions, 600mg Boric acid vaginal suppositories MF for 3-6 months., # 20 supp, 3 Refill(s), Pharmacy: [facility], 600mg Boric acid vaginal suppositories MF for 3-6 months. Start Date: 08/30/15 Status: Ordered buPROPion 150 mg/24 hours (XL) oral tablet, extended release See Instructions, TAKE 1 TABLET BY MOUTH EVERY DAY, # 90 tabs, 1 Refill(s), eRx : [id number], TAKE 1 TABLET BY MOUTH EVERY DAY Start Date: 07/09/16 Status: Ordered lidocaine 3% topical gel 1 ann, Topical, BID, as needed for pain, # 28.5 g, 0 Refill(s), Pharmacy: [facility] pharmacy #[id number] Start Date: 10/27/15 Status: Ordered metFORMIN 500 mg oral tablet 500 mg 1 tabs, Oral, Daily, # 90 tabs, 3 Refill(s), [id number], 1 tabs Oral Daily Start Date: 05/03/15 Status: Ordered Miscellaneous DME DME Item ACCU CHECK GLUCOSE METER, LANCETS, AND TEST STRIPS TEST Q AM - FASTING DX: 250.00, See Instructions, # 1 Each, 0 Refill(s), Pharmacy: [facility] pharmacy #[id number], ACCU CHECK GLUCOSE METER, LANCETS, AND TEST STRIPS; TEST Q AM - FASTING; DX: 250.00... Start Date: 02/03/15 Status: Ordered nitroglycerin 0.3 mg sublingual tablet 0.3 mg, SubLingual, q5min, not to exceed 3 doses/15 min--if pain persists, seek medical attention, # 10 tabs, 0 Refill(s), [id number], 0.3 mg SubLingual q5min,Instr:not to exceed 3 doses/15 min--if pain persists, seek medical attention Start Date: 10/27/15 Status: Ordered Synthroid 125 mcg (0.125 mg) oral tablet 125 mcg 1 tabs, Oral, Daily, # 90 tabs, 2 Refill(s), Pharmacy: [id number], 1 tabs Oral Daily Start Date: 12/13/15 Status: Ordered Welchol 625 mg oral tablet See Instructions, TAKE 6 TABLETS DAILY, # 540 tabs, 1 Refill(s), Pharmacy: [facility] [id number], TAKE 6 TABLETS DAILY Start Date: 07/06/16 Status: Ordered Results No data available for this section Immunizations Given and Recorded Vaccine Date Status Refusal Reason tetanus/diphth/pertuss (Tdap) adult/adol 05/19/13 Recorded influenza virus vaccine, inactivated 10/26/15 Given influenza virus vaccine, inactivated1 10/05/14 Recorded influenza virus vaccine, live 08/12/13 Given influenza virus vaccine, live 10/19/11 Given pneumococcal 13-valent conjugate vaccine 10/26/15 Given pneumococcal 13-valent conjugate vaccine2 08/12/13 Given pneumococcal 23-polyvalent vaccine 08/12/13 Given zoster vaccine live 10/26/15 Given 1Result Comment: [10/05/2014] SEE SCANNED DOCUMENT 2Result Comment: [07/01/2015 Uncharted] Uploaded in Error - CC Procedures Procedure Date Related Diagnosis Body Site [...]
--- OUTSIDE RECORDS SUMMARY | 2017-01-13 22:19 | XMS REPORT | Referral Summary ---
Author Organization Unknown Address Unknown Phone Unavailable Care Team Providers Care Line Builder Name Role Phone Josselin Parson Primary Care Physician [phone] Encounter VC Date(s): 12/17/14 - 12/17/14 [facility] , [facility] [address], [place] [address] Discharge Diagnosis: Dysuria Discharge Disposition: Home or Self Care Attending Physician: Aleksandar Parson DO Admitting Physician: Aleksandar Parson DO Vital Signs Most recent to 1 oldest [Reference Range]: Temperature Oral 36.4 degC [35.8-37.3 degC] (12/17/14 4:26 PM) Peripheral Pulse 80 bpm Rate [60-100 bpm] (12/17/14 4:26 PM) Blood Pressure 130/90 mmHg [90-140/60-90 mmHg] (12/17/14 4:26 PM) Most recent to 1 oldest [Reference Range]: SpO2 95 % (12/17/14 4:26 PM) Problem List Condition Effective Dates Status Health Status Informant Abnormal involuntary 06/16/10 Active movements(Confirmed) 1 Othr abn function 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) 2 Allergic Active rhinitis(Confirmed)3 Bilateral carpal Resolved [...] Buhr(Confirmed) Rt tknee 09/22/13 Resolved arthroscopic debridement [facility] Buhr(Confirmed) Sinus Active infections(Confirmed )14 Disturbance [...] Daily, # 90 tabs, 1 Refill(s), Pharmacy: [facility], 1 tabs Oral Daily Start Date: 10/06/14 Status: Ordered baclofen 20 mg oral tablet See Instructions, TAKE 1 TABLET (20MG) BY ORAL ROUTE 4 TIMES EVERY DAY, # 30 tabs, 1 Refill(s), eRx: [facility]/pharmacy #[id number], TAKE 1 TABLET (20MG) BY ORAL ROUTE 4 TIMES EVERY DAY Special Instructions: TAKE 1 TABLET (20MG) BY ORAL ROUTE 4 TIMES EVERY DAY Start Date: 08/04/14 Status: Ordered Cleocin 2% vaginal cream 1 ann, Vaginal, Bedtime (once a day), use for 30 days., # 21 g, 1 Refill(s), [id number] Special Instructions: use for 30 days. Start Date: 12/17/14 Status: Ordered colesevelam 625 mg oral tablet 6 tabs, Oral, Daily, # 540 tabs, 1 Refill(s), Pharmacy: [facility], 6 tabs Oral Daily,x90 days Start Date: 10/06/14 Stop Date: 04/04/15 Status: Ordered levothyroxine 125 mcg (0.125 mg) oral tablet 1 tabs, Oral, Daily, # 90 tabs, 1 Refill(s), Pharmacy: [facility], 1 tabs Oral Daily Start Date: 10/06/14 Status: Ordered lidocaine 3% topical gel 1 ann, Topical, BID, as needed for pain, # 28.5 g, 0 Refill(s), Pharmacy: [facility] pharmacy #[id number] Start Date: 10/26/14 Status: Ordered multivitamin Daily, 0 Refill(s) Start Date: 05/14/14 Status: Ordered nitroglycerin 0.3 mg, 0 Refill(s) Start Date: 04/12/14 Status: Ordered Results Urinalysis Most recent to 1 oldest [Reference Range]: UA Color Yellow (12/17/14 4:10 PM) UA Appear Clear (12/17/14 4:10 PM) UA pH [5.0-8.0] 6.0 (12/17/14 4:10 PM) UA Leuk Est Pos 1+ [Negative] *ABN* (12/17/14 4:10 PM) UA Nitrite Negative [Negative] (12/17/14 4:10 PM) UA Protein Negative [Negative] (12/17/14 4:10 PM) UA Glucose Negative [Negative] (12/17/14 4:10 PM) UA Ketones Negative [Negative] (12/17/14 4:10 PM) UA Urobilinogen 0.2 mg/dL (12/17/14 4:10 PM) UA Bili [Negative] Negative (12/17/14 4:10 PM) UA Blood Negative (12/17/14 4:10 PM) UA Spec Grav >=1.030 [1.003-1.030] (12/17/14 4:10 PM) Type Cl Catch (12/17/14 4:10 PM) UA WBC [0-4] 20-50 *ABN* (12/17/14 4:10 PM) UA RBC [0-2] 0-2 (12/17/14 4:10 PM) Epithelial Cells 0-2 (12/17/14 4:10 PM) UA Hyal Cast [0-3] 4-6 *ABN* (12/17/14 4:10 PM) Microbiology Reports PROCEDURE: Wet Prep Exam STATUS: Auth (Verified) BODY SITE: SOURCE: Cervix/Vaginal COLLECTED DATE/TIME: 12/17/14 4:48 PM Immunizations Vaccine Date Refusal Reason tetanus/diphth/pertuss (Tdap) [...] section Hysterectomy L knee scope x35 Tonsillectomy 1[facility]. [facility]. See NextGen. 2Follicular adenoma, lymphocytic thyroiditis. See NextGen. 3See NextGen. 4Torn tendon. See NextGen. 5See NextGen. Social History Social History Type Response Smoking Status Never smoker Assessment and Plan Extracted from: Title: Office Visit Note Author: Aleksandar Parson DO Date: 12/17/14 Assessment/Plan Dysuria This appears be more of a vaginitis and periurethral irritation that a urinary tract infection Cleocin vaginal cream twice a day and since this appears be a recurring issue will do this for 30 days Ordered: Genital Culture Wet Prep Exam Orders: clindamycin topical, 1 ann, Vaginal, Bedtime (once a day), use for 30 days., # 21 g, 1 Refill(s), Pharmacy: [facility]/pharmacy #[id number] Urinalysis Microscopic Urine Culture
--- OUTSIDE RECORDS SUMMARY | 2017-01-13 22:19 | XMS REPORT | Continuity of Care Document ---
Author Author Ramu Parson DO Ambulatory Address [address] [place] [address] Phone Care Team Providers Care Fire Fighter Name Role Phone Aleksandar Parson PP Unavailable Richard Mo RP Unavailable Payers Payer name Insurance type Covered democrat ID Authorization(s) Unknown Problems Condition Effective Dates (start - stop) Clinical Status Bronchitis, Acute - Recurrent Sinusitis, Acute - Recurrent HYPOTHYROIDISM NOS - PURE HYPERCHOLESTEROLEM - HYPERTENSION NOS - ANGINA PECTORIS NEC/NOS - 436 - CVA - ALLERGIC RHINITIS NOS - OSTEOARTHROS NOS-UNSPEC - ABN INVOLUN MOVEMENT NEC - SKIN SENSATION DISTURB - ABN PATTERN DEVELOPER FUNCT STUDY 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 - Pain in joint involving lower leg - *Chronic Hyperactive airway disease - Persistent Cough - Persistent Aftercare following joint replacement - Healing Gynecological examination - *Routine Decreased libido - *Acute Routine Medical Exam - *Routine NEED FOR PROPHYLACTIC VACCINATION WITH COMBINED [id number] ( DTP) (DTAP) VACCINE - Pneumonia Vaccine [...] leg - Healing Pharyngitis, Acute - *Acute Dizziness - Persistent Dysfunction of eustachian tube - Persistent Nonallopathic lesions of cervical region, not elsewhere classified 2013 - *Acute Nonallopathic lesions of rib cage, not elsewhere classified - * Acute Nonallopathic lesions of thoracic region, not elsewhere classified 2013 - *Acute Preoperative examination, unspecified - *Stable [...] day 20 MG - No Longer Active baclofen 20 mg tablet take 1 tablet (20MG) by oral route 4 times every day 20 MG - No Longer Active Levaquin 500 mg tablet take 1 tablet (500MG) by oral route every 24 hours 500 MG - No Longer Active Nitrostat 0.3 [...] to posterior vagina as directed. - Active ibuprofen 800 mg tablet take 1 tablet (800MG) by oral route twice a day with food - Active albuterol sulfate 2.5 mg/3 mL (0.083 %) solution for nebulization inhale 3 milliliter (2.5MG) by nebulization route 4 times every day 2.5 MG 2013 - Active MP MAGNESIUM (unknown strength) - Active MULTIVITAMINS (unknown strength) take 1 by Oral route every day - Active baclofen 20 mg tablet take 1 tablet (20MG) by oral route 4 times every day 20 MG - Active Immunizations Vaccine Date Status Comments Tdap (Boostrix r) completed Flu (split) (3 yrs or older) completed Pneumo (2 yrs or older)(PPV) completed Pneumo (2 yrs or older)(PPV) cancelled - Cancelled reason: Duplicate order. flu (split) (3 yrs or older) completed - Completed reason: source unspecified Results Test Name Date and Time Measure Units Reference Range Abnormal Flag Comments Unknown Vital Signs Date / Time: Height Weight Pulse Rate Blood Pressure Temperature /10:07:00 63.54 in 180.40 lbs 78 /min 144/82 mm[Hg] 98.4 F Procedures Procedure Date Unknown Encounters Encounter Location Date Patient Visit [facility] Patient Visit Conversion Patient Visit [address] Patient Visit [facility] E Patient Visit [address] Patient Visit [facility] Ortho Patient Visit [address] Patient [facility] Ortho Patient Visit [address] Patient Visit [place] [id number] OB Patient [address] Patient [facility] [place] Patient Visit [address] Patient [address] Patient Visit [facility] [place] Patient Visit [address] Patient [address] Patient Visit [facility] Jodie Laguna Patient Visit [facility] Surg Patient Visit [address] Patient Visit [facility] Ortho Patient Visit [address] Patient [address] Patient Visit [facility] ASC Patient Visit [facility] Ortho Patient Visit [address] Patient [address] Patient [address] Patient Visit [facility] [place] Patient Visit [facility] Patient Visit [facility] Surg Patient [address] Patient [address] Patient Visit [facility] Ortho Patient Visit Patient Visit [address] Patient Visit [address] Patient Visit [address] Advance Directives Directive Effective Date Unknown
--- OUTSIDE RECORDS SUMMARY | 2017-01-13 22:19 | XMS REPORT | Referral Summary ---
Author Author [address] [facility] [address], Family Medicine Organization [facility], Family Medicine Address Unknown Phone Unavailable Care Team Providers Care Laborer Brush Clearing Name Role Phone Josselin Parson Primary Care Physician [phone] Encounter [facility] [id number] Date(s): 05/11/16 - 05/11/16 [address] [facility] [address] [facility] Medicine [address] [place] [id number] Discharge Diagnosis: Prediabetes Discharge Diagnosis: Bites Discharge Disposition: 01-Home or Self Care Attending Physician: Malia Osuna PA-C Admitting Physician: Malia Ousna PA-C Vital Signs Most recent to 1 oldest [Reference Range]: Temperature Oral 36.7 degC [35.8-37.3 degC] (05/11/16 1:05 PM) Peripheral Pulse 94 bpm Rate [60-100 bpm] (05/11/16 1:05 PM) Blood Pressure 140/80 mmHg [90-140/60-90 mmHg] (05/11/16 1:05 PM) SpO2 96 % (05/11/16 1:05 PM) Problem List Condition Effective Dates Status Health Status Informant Abnormal involuntary 06/16/10 Active movements(Confirmed) 1 Othr abn function 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 Start Date: 08/30/15 Status: Ordered boric acid vaginal boric acid vaginal, See Instructions, 600mg Boric acid vaginal suppositories MF for 3-6 months., # 20 supp, 3 Refill(s), Pharmacy: [facility], 600mg Boric acid vaginal suppositories MF for 3-6 months. Start Date: 10/27/15 Status: Ordered clobetasol 0.05% topical cream 1 ann, Topical, BID, Apply a thin layer to the affected areas only if needed., # 45 g, 3 Refill(s), Pharmacy: [facility] [id number] Start Date: 04/19/16 Status: Ordered lidocaine 3% topical gel 1 ann, Topical, BID, as needed for pain, # 28.5 g, 0 Refill(s), Pharmacy: [facility] pharmacy #[id number] Start Date: 10/27/15 Status: Ordered metFORMIN 500 mg oral tablet 500 mg 1 tabs, Oral, Daily, # 90 tabs, 3 Refill(s), [id number], 1 tabs Oral Daily Start Date: 05/03/15 Status: Ordered Miscellaneous DME DME Item ACCU CHECK GLUCOSE METER, LANCETS, AND TEST STRIPS TEST Q AM - FASTING DX: 250.00, See Instructions, # 1 Each, 0 Refill(s), Pharmacy: [facility] pharmacy #[id number], ACCU CHECK GLUCOSE METER, LANCETS, AND TEST STRIPS; TEST Q AM - FASTING; DX: 250.00... Start Date: 02/03/15 Status: Ordered nitroglycerin 0.3 mg sublingual tablet 0.3 mg, SubLingual, q5min, not to exceed 3 doses/15 min--if pain persists, seek medical attention, # 10 tabs, 0 Refill(s), Pharmacy: [facility]/pharmacy #[id number], 0.3 mg SubLingual q5min,Instr:not to exceed 3 doses/15 min--if pain persists, seek medical attention Start Date: 10/27/15 Status: Ordered Synthroid 125 mcg (0.125 mg) oral tablet 125 mcg 1 tabs, Oral, Daily, # 90 tabs, 2 Refill(s), Pharmacy: [facility] [id number], 1 tabs Oral Daily Start Date: 12/13/15 Status: Ordered Welchol 625 mg oral tablet See Instructions, TAKE 6 TABLETS DAILY, # 540 tabs, 1 Refill(s), eRx: [facility], TAKE 6 TABLETS DAILY Start Date: 06/13/15 Status: Ordered Wellbutrin XL 150 mg/24 hours oral tablet, extended release 150 mg 1 tabs, Oral, q24hr, # 90 tabs, 3 Refill(s), Pharmacy: [facility]/pharmacy # [id number], 1 tabs Oral q24hr Start Date: 05/03/15 Status: Ordered Results Chemistry Most recent to 1 oldest [Reference Range]: Hgb A1c [4.1-5.6 %] 6.0 % *HI* (05/11/16 1:56 PM) eAvg Glucose 125.5 mg/dL (05/11/16 1:56 PM) Immunizations Vaccine Date Refusal Reason tetanus/diphth/pertuss [...] knee artroscopic debridement1 2012 Right thyroid lobectomy2 2013 Total knee replacement 2013 R knee scope3 [...] Extracted from: Title: Office Visit Note Author: Malia Osuna PA-C Date: 05/11/16 Assessment/Plan 1.Bites Will give a steroid shot today in the office. Recommend using a daily antihistamine and benedryl at night to help with sleep/itch. Recommended changing detergent to dye/fragrance free types, stop fabric softener /fabric sheets. Suggested keeping a log of exposures and new spots. 2.Prediabetes Deysi requested we check her BG. She hasn't been taking her Metformin as well as she should and she wanted to know her 3 month average. Will call her with results when available. Ordered: Hemoglobin A1c
--- OUTSIDE RECORDS SUMMARY | 2017-01-13 22:20 | XMS REPORT | Referral Summary ---
Author Author [facility], [facility]ocr[facility] Organization [facility] Address Unknown Phone Unavailable Care Team Providers Care Scrap Cutter Name Role Phone Josselin Parson Primary Care Physician [phone] Encounter Date(s): 05/22/16 - 05/22/16 [facility] [address] [place] [address] [facility] Discharge Diagnosis: Thyroid nodule Discharge Diagnosis: Hypothyroidism Discharge Diagnosis: Hyperlipidemia Discharge Disposition: 01-Home or Self Care Attending Physician: Richard Mo MD Admitting Physician: Richard Mo MD Referring Physician: Richard Mo MD Vital Signs Most recent to 1 oldest [Reference Range]: Peripheral Pulse 72 bpm Rate [60-100 bpm] (05/22/16 2:56 PM) Blood Pressure 152/96 mmHg [90-140/60-90 mmHg] *HI* (05/22/16 2:56 PM) Problem List Condition Effective Dates Status Health Status Informant Abnormal involuntary 06/16/10 Active movements(Confirmed) 1 Othr abn function 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) 2 Allergic Active rhinitis(Confirmed)3 Bilateral carpal Resolved [...] Buhr(Confirmed) Rt tknee 09/22/13 Resolved arthroscopic debridement [facility] Buhr(Confirmed) Sinus Active infections(Confirmed )14 Disturbance [...] DAILY, # 90 tabs, 2 Refill(s), Pharmacy: [id number], TAKE 1 TABLET DAILY Start Date: 12/13/15 Status: Ordered boric acid vaginal boric acid vaginal, See Instructions, 600mg Boric acid vaginal suppositories MF for 3-6 months., # 20 supp, 3 Refill(s), Pharmacy: [facility], 600mg Boric acid vaginal suppositories MF for 3-6 months. Start Date: 08/30/15 Status: Ordered lidocaine 3% topical gel 1 ann, Topical, BID, as needed for pain, # 28.5 g, 0 Refill(s), Pharmacy: [facility] pharmacy #[id number] Start Date: 10/27/15 Status: Ordered metFORMIN 500 mg oral tablet 500 mg 1 tabs, Oral, Daily, # 90 tabs, 3 Refill(s), [id number], 1 tabs Oral Daily Start Date: 05/03/15 Status: Ordered Miscellaneous DME DME Item ACCU CHECK GLUCOSE METER, LANCETS, AND TEST STRIPS TEST Q AM - FASTING DX: 250.00, See Instructions, # 1 Each, 0 Refill(s), Pharmacy: [facility] pharmacy #[id number], ACCU CHECK GLUCOSE METER, LANCETS, AND TEST STRIPS; TEST Q AM - FASTING; DX: 250.00... Start Date: 02/03/15 Status: Ordered nitroglycerin 0.3 mg sublingual tablet 0.3 mg, SubLingual, q5min, not to exceed 3 doses/15 min--if pain persists, seek medical attention, # 10 tabs, 0 Refill(s), Pharmacy: [facility] #[id number], 0.3 mg SubLingual q5min,Instr:not to exceed 3 doses/15 min--if pain persists, seek medical attention Start Date: 10/27/15 Status: Ordered Synthroid 125 mcg (0.125 mg) oral tablet 125 mcg 1 tabs, Oral, Daily, # 90 tabs, 2 Refill(s), Pharmacy: [id number], 1 tabs Oral Daily Start Date: 12/13/15 Status: Ordered Welchol 625 mg oral tablet See Instructions, TAKE 6 TABLETS DAILY, # 540 tabs, 1 Refill(s), [facility], TAKE 6 TABLETS DAILY Start Date: 06/13/15 Status: Ordered Wellbutrin XL 150 mg/24 hours oral tablet, extended release 150 mg 1 tabs, Oral, q24hr, # 90 tabs, 3 Refill(s), Pharmacy: [facility] # [id number], 1 tabs Oral q24hr Start Date: 05/03/15 [...] Extracted from: Title: Office Visit Note Author: Richard Mo MD Date: 05/22/16 Assessment/Plan 1.Hypothyroidism Check TSH with free T4. We'll adjust levothyroxin dose accordingly. Ordered: Comprehensive Metabolic Panel Free T4 Lipid Panel TSH 3rd Generation US Thyroid 2.Thyroid nodule Repeat thyroid ultrasound. Ordered: Comprehensive Metabolic Panel Free T4 Lipid Panel TSH 3rd Generation US Thyroid 3.Hyperlipidemia Check fasting lipid profilewith CMP. Consider startingNiaspan. Follow-up in 6 month. Ordered: Comprehensive Metabolic Panel Free T4 Lipid Panel Office Visit Level 4 Est 26634 TSH 3rd Generation US Thyroid
--- OUTSIDE RECORDS SUMMARY | 2017-01-13 22:20 | XMS REPORT | Referral Summary ---
Author Author [facility], Family Medicine Organization [facility] Address Unknown Phone Unavailable Care Team Providers Care Gusset Stitcher Name Role Phone Josselin Parson Primary Care Physician [phone] Encounter VC Date(s): 08/27/16 - 08/27/16 [facility] [address] [address], [facility] [address] [place] [id number] Discharge Diagnosis: Environmental allergies Discharge Diagnosis: Cough Discharge Disposition: 01-Home or Self Care Attending Physician: Aleksandar Parson DO Vital Signs Most recent to 1 oldest [Reference Range]: Temperature Oral 36.8 degC [35.8-37.3 degC] (08/27/16 4:19 PM) Peripheral Pulse 102 bpm Rate [60-100 bpm] *HI* (08/27/16 4:19 PM) Blood Pressure 142/68 mmHg [90-140/60-90 mmHg] *HI* (08/27/16 4:19 PM) SpO2 96 % (08/27/16 4:19 PM) Problem List Condition Effective Dates Status Health Status Informant Abnormal involuntary 06/16/10 Active movements(Confirmed) 1 Othr abn function Active study brain/CLINICAL REHABILITATION LIAISON(Confirmed) 2 Allergic Active rhinitis(Confirmed)3 Bilateral carpal Resolved [...] Buhr(Confirmed) Rt tknee 09/22/13 Resolved arthroscopic debridement [facility] Buhr(Confirmed) Sinus Active infections(Confirmed )14 Disturbance of [...] DAILY, # 90 tabs, 2 Refill(s), Pharmacy: [id number], TAKE 1 TABLET DAILY Start Date: 12/13/15 Status: Ordered boric acid vaginal boric acid vaginal, See Instructions, 600mg Boric acid vaginal suppositories MF for 3-6 months., # 20 supp, 3 Refill(s), Pharmacy: [facility], 600mg Boric acid vaginal suppositories MF for 3-6 months. Start Date: 08/30/15 Status: Ordered buPROPion 150 mg/24 hours (XL) oral tablet, extended release See Instructions, TAKE 1 TABLET BY MOUTH EVERY DAY, # 90 tabs, 1 Refill(s), eRx : [facility] [id number], TAKE 1 TABLET BY MOUTH EVERY DAY Start Date: 07/09/16 Status: Ordered lidocaine 3% topical gel 1 ann, Topical, BID, as needed for pain, # 28.5 g, 0 Refill(s), Pharmacy: [facility] pharmacy #[id number] Start Date: 10/27/15 Status: Ordered metFORMIN 500 mg oral tablet 500 mg 1 tabs, Oral, Daily, # 90 tabs, 3 Refill(s), [id number], 1 tabs Oral Daily Start Date: 05/03/15 Status: Ordered Miscellaneous DME DME Item ACCU CHECK GLUCOSE METER, LANCETS, AND TEST STRIPS TEST Q AM - FASTING DX: 250.00, See Instructions, # 1 Each, 0 Refill(s), Pharmacy: [facility]/ pharmacy #[id number], ACCU CHECK GLUCOSE METER, LANCETS, AND TEST STRIPS; TEST Q AM - FASTING; DX: 250.00... Start Date: 02/03/15 Status: Ordered nitroglycerin 0.3 mg sublingual tablet 0.3 mg, SubLingual, q5min, not to exceed 3 doses/15 min--if pain persists, seek medical attention, # 10 tabs, 0 Refill(s), [id number], 0.3 mg SubLingual q5min,Instr:not to exceed 3 doses/15 min--if pain persists, seek medical attention Start Date: 10/27/15 Status: Ordered Synthroid 125 mcg (0.125 mg) oral tablet 125 mcg 1 tabs, Oral, Daily, # 90 tabs, 2 Refill(s), Pharmacy: [facility] [id number], 1 tabs Oral Daily Start Date: 12/13/15 Status: Ordered Welchol 625 mg oral tablet See Instructions, TAKE 6 TABLETS DAILY, # 540 tabs, 1 Refill(s), Pharmacy: [facility] [id number], TAKE 6 TABLETS DAILY Start Date: 07/06/16 Status: Ordered Zithromax Z-Francisco 250 mg oral tablet 1 packets, Oral, Daily, as directed on package labeling, X 5 days, # 6 tabs, 0 Refill(s), Pharmacy: [id number], 1 packets Oral Daily,x5 days, Instr:as directed on package labeling Start Date: 08/27/16 Stop Date: 09/01/16 Status: Ordered Results No data available for [...] section Hysterectomy L knee scope x35 Tonsillectomy 1[facility]. See NextGen. 2Follicular adenoma, lymphocytic thyroiditis. See NextGen. 3See NextGen. 4Torn tendon. See NextGen. 5See NextGen. Social History Social History Type Response Smoking Status Never smoker Assessment and Plan Extracted from: Title: Office Visit Note Author: Aleksandar Parson DO Date: 08/27/16 Assessment/Plan 1.Environmental allergies Kenalog 80 mg IM Liyah-D RTC if persists. Issue 2.Cough Since cough is becoming more productiveconcernabout bronchitis so Z-Francisco
--- OUTSIDE RECORDS SUMMARY | 2017-01-13 22:20 | XMS REPORT | Referral Summary ---
Author Author [facility] Organization [facility] Address Unknown Phone Unavailable Care Team Providers Care Change Manager Name Role Phone Josselin Parson Primary Care Physician [phone] Encounter Date(s): 10/26/15 - 10/26/15 [facility] [address] [place] [id number] Discharge Diagnosis: Hypertension Discharge Diagnosis: Diabetes Discharge Diagnosis: Depression Discharge Diagnosis: Hypothyroid Discharge Diagnosis: Allergic rhinitis Discharge Disposition: 01-Home or Self Care Attending Physician: Aleksandar Parson DO Vital Signs Most recent to 1 oldest [Reference Range]: Peripheral Pulse 76 bpm Rate [60-100 bpm] (10/26/15 9:33 AM) Blood Pressure 160/90 mmHg [90-140/60-90 mmHg] *HI* (10/26/15 9:33 AM) Problem List Condition Effective Dates Status Health Status Informant Abnormal involuntary 06/16/10 Active movements(Confirmed) 1 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) 2 Allergic Active rhinitis(Confirmed)3 Bilateral carpal Resolved [...] DAILY, # 90 tabs, 1 Refill(s), eRx: [facility], TAKE 1 TABLET DAILY Start Date: 06/13/15 Status: Ordered boric acid vaginal boric acid vaginal, See Instructions, 600mg Boric acid vaginal suppositories MF for 3-6 months., # 20 supp, 3 Refill(s), Pharmacy: [facility], 600mg Boric acid vaginal suppositories [...] DAILY, # 90 tabs, 1 Refill(s), eRx: [facility], TAKE 1 TABLET DAILY Start Date: 06/13/15 Status: Ordered lidocaine 3% topical gel 1 ann, Topical, BID, as needed for pain, # 28.5 g, 0 Refill(s), Pharmacy: [facility] pharmacy #[id number] Start Date: 10/26/14 Status: Ordered metFORMIN 500 mg oral tablet 500 mg 1 tabs, Oral, Daily, # 90 tabs, 3 Refill(s), [id number], 1 tabs Oral Daily Start Date: 05/03/15 Status: Ordered Miscellaneous DME DME Item ACCU CHECK GLUCOSE METER, LANCETS, AND TEST STRIPS TEST Q AM - FASTING DX: 250.00, See Instructions, # 1 Each, 0 Refill(s), Pharmacy: [facility] pharmacy #[id number], ACCU CHECK GLUCOSE METER, LANCETS, AND TEST STRIPS; TEST Q AM - FASTING; DX: 250.00... Start Date: 02/03/15 Status: Ordered multivitamin Daily, 0 Refill(s) Start Date: 05/14/14 Status: Ordered nitroglycerin 0.3 mg, 0 Refill(s) Start Date: 04/12/14 Status: Ordered Welchol 625 mg oral tablet See Instructions, TAKE 6 TABLETS DAILY, # 540 tabs, 1 Refill(s), eRx: [facility], TAKE 6 TABLETS DAILY Start Date: 06/13/15 Status: Ordered Wellbutrin XL 150 mg/24 hours oral tablet, extended release 150 mg 1 tabs, Oral, q24hr, # 90 tabs, 3 Refill(s), [id number], 1 tabs Oral q24hr Start Date: 05/03/15 [...] Visit Note Author: Aleksandar Parson DO Date: 10/26/15 Assessment/Plan 1.Hypertension Lab Continue current medication Ordered: Albumin Level Urine CBC w/ Differential Comprehensive Metabolic Panel Hemoglobin A1c Lipid Panel MG Mammogram Routine Screening Bilat TSH 3rd Generation Urinalysis with Culture if Indicated 2.Depression Continue current medication Ordered: CBC w/ Differential Comprehensive Metabolic Panel Hemoglobin A1c Lipid Panel MG Mammogram Routine Screening Bilat TSH 3rd Generation 3.Diabetes Continue current medication Stress dietexercise program Ordered: CBC w/ Differential Comprehensive Metabolic Panel Hemoglobin A1c Lipid Panel MG Mammogram Routine Screening Bilat TSH 3rd Generation 4.Hypothyroid Continue current medication Ordered: CBC w/ Differential Comprehensive Metabolic Panel Hemoglobin A1c Lipid Panel MG Mammogram Routine Screening Bilat TSH 3rd Generation 5.Allergic rhinitis Continue medication as needed Ordered: MG Mammogram Routine Screening Bilat Orders: BD Bone Density DEXA Axial Skeleton BD Bone Density DEXA Axial Skeleton
--- OUTSIDE RECORDS SUMMARY | 2017-01-13 22:20 | XMS REPORT | Referral Summary ---
Author Author [facility] Organization [facility] Address Unknown Phone Unavailable Care Team Providers Care Geospatial Image Analyst Name Role Phone Josselin Parson Primary Care Physician [phone] Encounter VC Date(s): 10/10/15 - 10/10/15 [facility] [address] [place], [place] [address] Discharge Diagnosis: Left Achilles bursitis Discharge Diagnosis: Retrocalcaneal exostosis Discharge Disposition: 01-Home or Self Care Attending Physician: Donovan Holt DPM Admitting Physician: Donovan Holt DPM Vital Signs No data available for this section Problem List Condition Effective Dates Status Health Status Informant Abnormal involuntary 06/16/10 Active movements(Confirmed) 1 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) 2 Allergic Active rhinitis(Confirmed)3 Bilateral carpal Resolved [...] DAILY, # 90 tabs, 1 Refill(s), eRx: [facility], TAKE 1 TABLET DAILY Start Date: 06/13/15 Status: Ordered boric acid vaginal boric acid vaginal, See Instructions, 600mg Boric acid vaginal suppositories MF for 3-6 months., # 20 supp, 3 Refill(s), Pharmacy: [facility], 600mg Boric acid vaginal suppositories MF [...] DAILY, # 90 tabs, 1 Refill(s), eRx: [facility], TAKE 1 TABLET DAILY Start Date: 06/13/15 Status: Ordered lidocaine 3% topical gel 1 ann, Topical, BID, as needed for pain, # 28.5 g, 0 Refill(s), Pharmacy: [facility] pharmacy #[id number] Start Date: 10/26/14 Status: Ordered metFORMIN 500 mg oral tablet 500 mg 1 tabs, Oral, Daily, # 90 tabs, 3 Refill(s), [id number], 1 tabs Oral Daily Start Date: 05/03/15 Status: Ordered Miscellaneous DME DME Item ACCU CHECK GLUCOSE METER, LANCETS, AND TEST STRIPS TEST Q AM - FASTING DX: 250.00, See Instructions, # 1 Each, 0 Refill(s), Pharmacy: [facility] pharmacy #[id number], ACCU CHECK GLUCOSE METER, LANCETS, AND TEST STRIPS; TEST Q AM - FASTING; DX: 250.00... Start Date: 02/03/15 Status: Ordered multivitamin Daily, 0 Refill(s) Start Date: 05/14/14 Status: Ordered nitroglycerin 0.3 mg, 0 Refill(s) Start Date: 04/12/14 Status: Ordered Welchol 625 mg oral tablet See Instructions, TAKE 6 TABLETS DAILY, # 540 tabs, 1 Refill(s), eRx: [facility], TAKE 6 TABLETS DAILY Start Date: 06/13/15 Status: Ordered Wellbutrin XL 150 mg/24 hours oral tablet, extended release 150 mg 1 tabs, Oral, q24hr, # 90 tabs, 3 Refill(s), [id number], 1 tabs Oral q24hr Start Date: 05/03/15 [...] section Hysterectomy L knee scope x35 Tonsillectomy 1[facility]. See NextGen. 2Follicular adenoma, lymphocytic thyroiditis. See NextGen. 3See NextGen. 4Torn tendon. See NextGen. 5See NextGen. Social History Social History Type Response Smoking Status Never smoker Assessment and Plan Extracted from: Title: Office Visit Note Author: Donovan Holt DPM Date: 10/10/15 Assessment/Plan Left Achilles bursitis Retrocalcaneal exostosis Reviewed x-ray of left ankle 3 views. Discussed the importance ofcalf stretching exercises. Recommended night splint and handout was given. Patient was provided with 2 paid of heel lifts. Ibuprofen 2 pillstwice daily with food next 7-10 days. Follow-up if condition worsens.
--- OUTSIDE RECORDS SUMMARY | 2017-01-13 22:20 | XMS REPORT | Continuity of Care Document ---
Author Author Ramu Parson DO Ambulatory Address [address] [place] [address] Phone Care Team Providers Care Pit Laborer Name Role Phone Aleksandar Parson PP Unavailable Richard Mo RP Unavailable Payers Payer name Insurance type Covered green party ID Authorization(s) Unknown Problems Condition Effective Dates (start - stop) Clinical Status Hyperactive airway disease - Persistent Cough - Persistent HYPOTHYROIDISM NOS - PURE HYPERCHOLESTEROLEM - HYPERTENSION NOS - ANGINA PECTORIS NEC/NOS - 436 - CVA - ALLERGIC RHINITIS NOS - OSTEOARTHROS NOS-UNSPEC - ABN INVOLUN MOVEMENT NEC - SKIN SENSATION DISTURB - ABN 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 - Pain in joint involving lower leg - *Chronic Aftercare following joint replacement - Healing Bronchitis, Acute - Recurrent Sinusitis, Acute - Recurrent Gynecological examination - *Routine Decreased libido - *Acute Routine Medical Exam - *Routine NEED FOR PROPHYLACTIC VACCINATION WITH COMBINED [id number] ( DTP) (DTAP) VACCINE - Pneumonia Vaccine [...] Dosage Effective Dates (start - stop) Status albuterol sulfate 2.5 mg/3 mL (0.083 %) solution for nebulization inhale 3 milliliter (2.5MG) by nebulization route 4 times every day 2.5 MG 2013 - Active Nitrostat 0.[address] [...] twice a day with food - Active MP MAGNESIUM (unknown strength) - [...] Measure Units Reference Range Abnormal Flag Comments Panel Description: CBC WBC 15:39:00 5.0 1000/cmm 5.0-10.0 RBC 15:39:00 4.69 mil/cmm 3.70-5.20 HGB 15:39:00 12.7 g/dL 12.0-16.0 HCT 15:39:00 38.0 % 37.0-47.0 MCV 15:39:00 81.0 fL 80.0-96.0 MCHC 15:39:00 33.4 g/dL 32.0-36.0 RDW 15:39:00 15.7 % 0.0-14.5 H PLT 15:39:00 186 1000/cmm 150-400 SEG 15:39:00 63 % 50-70 LYMPH 15:39:00 28 % 20-40 MONO 15:39:00 6 % 4-12 EOSIN 15:39:00 3 % <6 BASO 15:39:00 0 % <2 Vital Signs Date / Time: Height Weight Pulse Rate Blood Pressure Temperature /15:07:00 63.54 in 74 /min 128/80 mm[Hg] 97.9 F Procedures Procedure Date Unknown Encounters Encounter Location Date Patient Visit [address] Patient Visit Conversion Patient Visit [address] Patient Visit [facility] E 21st Patient Visit [address] Patient Visit [facility] Ortho Patient Visit [facility] Ortho Patient Visit [address] Patient [address] Patient Visit [place] [id number] OB Patient [address] Patient [address] Patient Visit [facility] Patient Visit [address] Patient [address] Patient Visit [facility] Patient Visit [address] Patient [address] Patient Visit [facility] [employer] [place] Patient Visit [facility] Surg Patient Visit [address] Patient Visit [facility] Ortho Patient Visit [address] Patient [address] Patient Visit [facility] ASC Patient Visit [facility] Ortho Patient [facility] Patient Visit [address] Patient [address] Patient Visit [facility] Patient Visit [facility] Patient Visit [facility] Surg Patient Visit [address] Patient [address] Patient Visit [facility] Ortho Patient Visit Patient Visit [address] Patient Visit [address] Patient Visit [address] Advance Directives Directive Effective Date Unknown
--- OUTSIDE RECORDS SUMMARY | 2017-01-13 22:20 | XMS REPORT | Continuity of Care Document ---
Author Author Francoise IRWIN, Aquiles Urbano Ambulatory Address [address] [place] [address] Phone Care Team Providers Care Manager Maintenance Name Role Phone Aleksandar Parson PP Unavailable Richard Mo RP Unavailable Payers Payer name Insurance type Covered libertarian ID Authorization(s) Unknown Problems Condition Effective Dates (start - stop) Clinical Status Aftercare following joint replacement - Healing HYPOTHYROIDISM NOS - PURE HYPERCHOLESTEROLEM - HYPERTENSION NOS - ANGINA PECTORIS NEC/NOS - 436 - CVA - ALLERGIC RHINITIS NOS - OSTEOARTHROS NOS-UNSPEC - ABN INVOLUN MOVEMENT NEC - SKIN SENSATION DISTURB - 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 - Pain in joint involving lower leg - *Chronic Hyperactive airway disease - Persistent Cough - Persistent Conjunctival hemorrhage - *Acute Bronchitis, Acute - Recurrent Sinusitis, Acute - Recurrent Gynecological examination - *Routine Decreased libido - *Acute Routine Medical Exam - *Routine NEED FOR PROPHYLACTIC VACCINATION WITH COMBINED [id number] ( DTP) (DTAP) VACCINE - Pneumonia Vaccine [...] Dosage Effective Dates (start - stop) Status MP MAGNESIUM (unknown strength) - Active MULTIVITAMINS (unknown strength) take 1 by Oral route every day - Active Nitrostat 0.3 mg sublingual tablet [...] every day 2.5 MG 2013 - Active baclofen 20 mg tablet take 1 tablet (20MG) by oral route 4 times every day 20 MG - Active POTASSIUM (unknown strength) - Active Immunizations Vaccine Date Status Comments [...] Height Weight Pulse Rate Blood Pressure Temperature /12:57:00 63.54 in 176.00 lbs Procedures Procedure Date Unknown Encounters Encounter Location Date Patient Visit [facility] Patient Visit Conversion Patient Visit [facility] Patient Visit [facility] Patient Visit [address] Patient Visit [facility] Patient Visit [address] [facility] Ophthamology Patient Visit [facility] Patient Visit [facility] OB Patient Visit [facility] Patient Visit [facility] Patient Visit [facility] Patient Visit [facility] Patient Visit [facility] Patient Visit [facility] Patient Visit [facility]21 Patient Visit [facility]21 Patient Visit [facility] [place]odie [place] Patient Visit [facility] Surg Patient Visit [facility] E21 Patient Visit [facility] Ortho Patient Visit [facility] E21 Patient Visit [facility] E21 Patient Visit [facility] Patient Visit [facility] E21 Patient Visit [facility] ASC Patient Visit [facility] Ortho Patient Visit [facility] E21 Patient Visit [facility] E21 Patient Visit [facility] E21 Patient Visit [facility] Mur Endo Patient Visit [facility] Card Patient Visit [facility] Patient Visit [facility] Patient Visit [facility] Advance Directives Directive Effective Date Unknown
--- OUTSIDE RECORDS SUMMARY | 2017-01-13 22:21 | XMS REPORT | Continuity of Care Document ---
Author Author [facility] Organization [facility] Address Unknown Phone Unavailable Allergies Medications Problems Date Dx Coded Attending Type Code Diagnosis Diagnosed By 06/18/2013 Aquiles Owusu MD 244.9 HYPOTHYROIDISM NOS 06/18/2013 Aquiles Owusu MD 276.8 HYPOPOTASSEMIA 06/18/2013 Aquiles Owusu MD 278.00 OBESITY, NOS 06/18/2013 Aquiles Owusu MD 327.23 OBSTRUCTIVE SLEEP APNEA (ADULT) (PEDIATRIC) 06/18/2013 Aquiles Owusu MD 401.9 HYPERTENSION NOS 06/18/2013 Aquiles Owusu MD 472.0 CHRONIC RHINITIS 06/18/2013 Aquiles Owusu MD 599.0 URIN TRACT INFECTION NOS 06/18/2013 Aquiles Owusu MD 715.36 LOC OSTEOARTH NOS-L/LEG 06/18/2013 Aquiles Owusu MD 719.46 JOINT PAIN-L/LEG 06/18/2013 Aquiles Owusu MD V12.54 PERSONAL HX OF TIA, CEREBRAL INFARCTION W/ OUT RES 09/15/2013 Aquiles Owusu MD V72.83 EXAM PRE-OPERATIVE NEC Procedures Code Description Performed By Performed On 81.54 TOTAL KNEE REPLACEMENT Aquiles Owusu MD 06/18/2013 80.86 DESTRUCT-KNEE LESION NEC Aquiles Owusu MD 09/22/2013 93.16 OTHER JOINT MOBILIZATION Aquiles Owusu MD 09/22/2013 Results Test Result Range URINALYSIS WITH MICROSCOPIC - 06/11/13 15:07 UA LEUKOCYTE ESTERASE DIPSTICK TRACE NEGATIVE UA NITRITE DIPSTICK NEGATIVE NEGATIVE UA PROTEIN DIPSTICK NEGATIVE NEGATIVE UA GLUCOSE DIPSTICK NEGATIVE NEGATIVE UA KETONE DIPSTICK NEGATIVE NEGATIVE UA UROBILINOGEN DIPSTICK NORMAL NORMAL UA BILIRUBIN DIPSTICK NEGATIVE NEGATIVE UA BLOOD DIPSTICK NEGATIVE NEGATIVE UA AMORPHOUS SEDIMENT 1+ UA BACTERIA 2+ NEGATIVE UA EPITHELIAL CELLS 1+ epi/hpf 0 - 1+ UA MUCUS 4+ NEG TO 1+ UA RBC 0 rbc/hpf 0 - 3 UA VOLUME FOR EXAM 12.0 mL (12mL STD) UA WBC 5-10 wbc/hpf 0 - 5 UA SPECIFIC GRAVITY 1.018 1.015-1.025 UR PH 5.0 5.0-7.0 CBC W/DIFF - 06/11/13 15:07 EOSINOPHIL # 0.1 k/cumm 0.1-0.5 EOSINOPHIL % 2 % 2-4 GRANULOCYTE # 3.2 k/cumm 2.0-9.0 GRANULOCYTE % 60 % 50-75 LYMPHOCYTE # 1.6 k/cumm 1.0-4.0 LYMPHOCYTE % 29 % 20-30 MEAN CELL HGB 28.5 pg 27.0-33.0 MEAN CELL HGB CONCENTRATION 34.0 g/dL 32.0-37.0 MEAN CELL VOLUME 83.8 fl 80.0-100.0 MONOCYTE # 0.5 k/cumm 0.1-1.0 MONOCYTE % 8 % 4-6 RED BLOOD CELL 5.01 m/cumm 4.00-6.00 RED CELL DISTRIBUTION WIDTH 14.7 % 11.0- 15.6 WHITE BLOOD CELL 5.3 k/cumm 5.0-10.0 HEMOGLOBIN 14.3 gm/dL 12.0-16.0 HEMATOCRIT 42.0 % 37.0-47.0 PLATELET COUNT 210 k/cumm 150-400 SED RATE - 06/11/13 15:07 SED RATE 13 mm/hr 0-15 PROTHROMBIN TIME WITH INR - 06/11/13 15:07 INTERNATIONAL NORMAL RATIO 0.9 0.9-1.1 PROTHROMBIN TIME 10.1 sec 9.3-12.2 PARTIAL THROMBOPLASTIN TIME - 06/11/13 15:07 PARTIAL THROMBOPLASTIN TIME 25 sec 24-36 METABOLIC PANEL, BASIC - 06/11/13 15:07 POTASSIUM 3.8 mmol/L 3.5-5.3 EST GFR (MDRD) > 60 mL/min > 59 ANION GAP 11 mmol/L 5-15 GLUCOSE 82 mg/dL 70-99 CALCIUM 9.5 mg/dL 8.5-10.1 BLOOD UREA NITROGEN 17 mg/dL 7-20 CREATININE 0.8 mg/dL 0.6-1.0 SODIUM 141 mmol/L 135-148 CHLORIDE 102 mmol/L 98-110 CARBON DIOXIDE 28 mmol/L 21-32 C REACTIVE PROTEIN - 06/11/13 15:07 C REACTIVE PROTEIN < 2.9 mg/L < 8.0 MRSA SURVEILLANCE SCREEN - 06/11/13 15:07 Uncategorized URINE CULTURE - 06/18/13 21:05 Uncategorized URINALYSIS, ROUTINE - 06/18/13 21:12 UA LEUKOCYTE ESTERASE DIPSTICK TRACE NEGATIVE UA NITRITE DIPSTICK NEGATIVE NEGATIVE UA PROTEIN DIPSTICK NEGATIVE NEGATIVE UA GLUCOSE DIPSTICK NEGATIVE NEGATIVE UA KETONE DIPSTICK NEGATIVE NEGATIVE UA UROBILINOGEN DIPSTICK NORMAL NORMAL UA BILIRUBIN DIPSTICK NEGATIVE NEGATIVE UA BLOOD DIPSTICK NEGATIVE NEGATIVE UA BACTERIA 1+ NEGATIVE UA EPITHELIAL CELLS 1+ epi/hpf 0 - 1+ UA RBC 0-3 rbc/hpf 0 - 3 UA VOLUME FOR EXAM 12.0 mL (12mL STD) UA WBC 10-20 wbc/hpf 0 - 5 UA SPECIFIC GRAVITY 1.012 1.015-1.025 UR PH 5.0 5.0-7.0 CBC - 06/19/13 05:16 MEAN CELL HGB 28.1 pg 27.0-33.0 MEAN CELL HGB CONCENTRATION 32.9 g/dL 32.0-37.0 MEAN CELL VOLUME 85.4 fl 80.0-100.0 RED BLOOD CELL 4.38 m/cumm 4.00-6.00 RED CELL DISTRIBUTION WIDTH 14.9 % 11.0- 15.6 WHITE BLOOD CELL 9.5 k/cumm 5.0-10.0 HEMOGLOBIN 12.3 gm/dL 12.0-16.0 HEMATOCRIT 37.4 % 37.0-47.0 PLATELET COUNT 194 k/cumm 150-400 METABOLIC PANEL, [facility]PREHN - 06/19/13 05:16 POTASSIUM 3.5 mmol/L 3.5-5.3 EST GFR (MDRD) 60 mL/min > 59 ANION GAP 12 mmol/L 5-15 EST CrCl (CG) 48 mL/min > 59 GLUCOSE 122 mg/dL 70-99 CALCIUM 8.3 mg/dL 8.5-10.1 BLOOD UREA NITROGEN 11 mg/dL 7-20 CREATININE 1.0 mg/dL 0.6-1.0 SODIUM 138 mmol/L 135-148 CHLORIDE 99 mmol/L 98-110 AST/SGOT 38 Units/L 10-37 ALT/SGPT 90 Units/L < 66 CARBON DIOXIDE 27 mmol/L 21-32 TOTAL PROTEIN 6.2 gm/dL 6.4-8.2 ALBUMIN 3.1 gm/dL 3.4-5.0 BILI TOTAL 0.7 mg/dL 0.0-1.0 ALKALINE PHOSPHATASE TOTAL 131 Units/L 50 -136 CBC - 06/20/13 04:46 MEAN CELL HGB 28.2 pg 27.0-33.0 MEAN CELL HGB CONCENTRATION 33.0 g/dL 32.0-37.0 MEAN CELL VOLUME 85.4 fl 80.0-100.0 RED BLOOD CELL 4.11 m/cumm 4.00-6.00 RED CELL DISTRIBUTION WIDTH 15.2 % 11.0- 15.6 WHITE BLOOD CELL 9.1 k/cumm 5.0-10.0 HEMOGLOBIN 11.6 gm/dL 12.0-16.0 HEMATOCRIT 35.1 % 37.0-47.0 PLATELET COUNT 182 k/cumm 150-400 METABOLIC PANEL, [facility] - 06/20/13 04:46 POTASSIUM 3.3 mmol/L 3.5-5.3 EST GFR (MDRD) > 60 mL/min > 59 ANION GAP 7 mmol/L 5-15 EST CrCl (CG) 54 mL/min > 59 GLUCOSE 111 mg/dL 70-99 CALCIUM 8.8 mg/dL 8.5-10.1 BLOOD UREA NITROGEN 11 mg/dL 7-20 CREATININE 0.9 mg/dL 0.6-1.0 SODIUM 138 mmol/L 135-148 CHLORIDE 100 mmol/L 98-110 AST/SGOT 17 Units/L 10-37 ALT/SGPT 58 Units/L < 66 CARBON DIOXIDE 31 mmol/L 21-32 TOTAL PROTEIN 6.1 gm/dL 6.4-8.2 ALBUMIN 2.8 gm/dL 3.4-5.0 BILI TOTAL 0.7 mg/dL 0.0-1.0 ALKALINE PHOSPHATASE TOTAL 117 Units/L 50 -136 CBC - 06/21/13 04:31 MEAN CELL HGB 28.1 pg 27.0-33.0 MEAN CELL HGB CONCENTRATION 32.9 g/dL 32.0-37.0 MEAN CELL VOLUME 85.2 fl 80.0-100.0 RED BLOOD CELL 3.99 m/cumm 4.00-6.00 RED CELL DISTRIBUTION WIDTH 15.0 % 11.0- 15.6 WHITE BLOOD CELL 9.1 k/cumm 5.0-10.0 HEMOGLOBIN 11.2 gm/dL 12.0-16.0 HEMATOCRIT 34.0 % 37.0-47.0 PLATELET COUNT 195 k/cumm 150-400 METABOLIC PANEL, COMPREHN - 06/21/13 04:31 POTASSIUM 3.7 mmol/L 3.5-5.3 EST GFR (MDRD) > 60 mL/min > 59 ANION GAP 8 mmol/L 5-15 EST CrCl (CG) 60 mL/min > 59 GLUCOSE 102 mg/dL 70-99 CALCIUM 8.7 mg/dL 8.5-10.1 BLOOD UREA NITROGEN 11 mg/dL 7-20 CREATININE 0.8 mg/dL 0.6-1.0 SODIUM 140 mmol/L 135-148 CHLORIDE 101 mmol/L 98-110 AST/SGOT 13 Units/L 10-37 ALT/SGPT 44 Units/L < 66 CARBON DIOXIDE 31 mmol/L 21-32 TOTAL PROTEIN 6.5 gm/dL 6.4-8.2 ALBUMIN 2.5 gm/dL 3.4-5.0 BILI TOTAL 0.6 mg/dL 0.0-1.0 ALKALINE PHOSPHATASE TOTAL 113 Units/L 50 -136 CBC W/DIFF - 09/15/13 11:21 EOSINOPHIL # 0.1 k/cumm 0.1-0.5 EOSINOPHIL % 3 % 2-4 GRANULOCYTE # 3.1 k/cumm 2.0-9.0 GRANULOCYTE % 56 % 50-75 LYMPHOCYTE # 1.8 k/cumm 1.0-4.0 LYMPHOCYTE % 32 % 20-30 MEAN CELL HGB 27.6 pg 27.0-33.0 MEAN CELL HGB CONCENTRATION 33.0 g/dL 32.0-37.0 MEAN CELL VOLUME 83.6 fl 80.0-100.0 MONOCYTE # 0.5 k/cumm 0.1-1.0 MONOCYTE % 8 % 4-6 RED BLOOD CELL 4.93 m/cumm 4.00-6.00 RED CELL DISTRIBUTION WIDTH 15.0 % 11.0- 15.6 WHITE BLOOD CELL 5.5 k/cumm 5.0-10.0 HEMOGLOBIN 13.6 gm/dL 12.0-16.0 HEMATOCRIT 41.2 % 37.0-47.0 PLATELET COUNT 262 k/cumm 150-400 PROTHROMBIN TIME WITH INR - 09/15/13 11:21 INTERNATIONAL NORMAL RATIO 0.9 0.9-1.1 PROTHROMBIN TIME 10.5 sec 9.3-12.2 PARTIAL THROMBOPLASTIN TIME - 09/15/13 11:21 PARTIAL THROMBOPLASTIN TIME 30 sec 24-36 METABOLIC PANEL, BASIC - 09/15/13 11:21 POTASSIUM 5.0 mmol/L 3.5-5.3 EST GFR (MDRD) > 60 mL/min > 59 ANION GAP 13 mmol/L 5-15 EST CrCl (CG) 60 mL/min > 59 GLUCOSE 94 mg/dL 70-99 CALCIUM 9.7 mg/dL 8.5-10.1 BLOOD UREA NITROGEN 18 mg/dL 7-20 CREATININE 0.8 mg/dL 0.6-1.0 SODIUM 148 mmol/L 135-148 CHLORIDE 108 mmol/L 98-110 CARBON DIOXIDE 27 mmol/L 21-32 URINALYSIS WITH MICROSCOPIC - 09/15/13 12:15 UA LEUKOCYTE ESTERASE DIPSTICK NEGATIVE NEGATIVE UA NITRITE DIPSTICK NEGATIVE NEGATIVE UA PROTEIN DIPSTICK NEGATIVE NEGATIVE UA GLUCOSE DIPSTICK NEGATIVE NEGATIVE UA KETONE DIPSTICK NEGATIVE NEGATIVE UA UROBILINOGEN DIPSTICK NORMAL NORMAL UA BILIRUBIN DIPSTICK NEGATIVE NEGATIVE UA BLOOD DIPSTICK NEGATIVE NEGATIVE UA BACTERIA 1+ NEGATIVE UA EPITHELIAL CELLS 1+ epi/hpf 0 - 1+ UA HYALINE CAST 0-1 cast/lpf 0 - 1 UA MUCUS 3+ NEG TO 1+ UA RBC 0-3 rbc/hpf 0 - 3 UA VOLUME FOR EXAM 12.0 mL (12mL STD) UA WBC 0-1 wbc/hpf 0 - 5 UA SPECIFIC GRAVITY 1.017 1.015-1.025 UR PH 6.5 5.0-7.0 CBC - 09/23/13 04:46 MEAN CELL HGB 27.9 pg 27.0-33.0 MEAN CELL HGB CONCENTRATION 34.7 g/dL 32.0-37.0 MEAN CELL VOLUME 80.4 fl 80.0-100.0 RED BLOOD CELL 4.91 m/cumm 4.00-6.00 RED CELL DISTRIBUTION WIDTH 15.0 % 11.0- 15.6 WHITE BLOOD CELL 8.4 k/cumm 5.0-10.0 HEMOGLOBIN 13.7 gm/dL 12.0-16.0 HEMATOCRIT 39.5 % 37.0-47.0 PLATELET COUNT 239 k/cumm 150-400 METABOLIC PANEL, BASIC - 09/23/13 04:47 POTASSIUM 3.9 mmol/L 3.5-5.3 EST GFR (MDRD) > 60 mL/min > 59 ANION GAP 15 mmol/L 5-15 EST CrCl (CG) > 60 mL/min > 59 GLUCOSE 81 mg/dL 70-99 CALCIUM 9.1 mg/dL 8.5-10.1 BLOOD UREA NITROGEN 11 mg/dL 7-20 CREATININE 0.7 mg/dL 0.6-1.0 SODIUM 140 mmol/L 135-148 CHLORIDE 105 mmol/L 98-110 CARBON DIOXIDE 20 mmol/L 21-32 Encounters ACCT No. Visit Date/Time Discharge Status Pt. Type Provider Facility Loc./Unit Complaint [id number] 09/22/2013 08:45:00 2012 17:50:00 DIS Outpatient Francoise IRWIN, [facility] [place] [id number] 09/15/2013 10:34:00 2012 10:34:00 DIS Outpatient Francoise IRWIN, [facility] [place] [id number] 06/18/2013 05:04:00 2012 14:09:00 DIS Inpatient Francoise IRWIN, [facility] W.9[place] [id number] 06/11/2013 13:11:00 2012 13:11:00 DIS Outpatient Francoise IRWIN, [facility] [place]
--- OUTSIDE RECORDS SUMMARY | 2017-01-13 22:21 | XMS REPORT | Continuity of Care Document ---
Author Author Valentina IRWIN, [facility] Ambulatory Address [address] [facility] [place] [address] Phone Care Team Providers Care Top Collar Baster Name Role Phone Aleksandar Parson PP Unavailable Richard Mo RP Unavailable Payers Payer name Insurance type Covered libertarian ID Authorization(s) Unknown Problems Condition Effective Dates (start - stop) Clinical Status Conjunctival hemorrhage - *Acute HYPOTHYROIDISM NOS - PURE HYPERCHOLESTEROLEM - HYPERTENSION NOS - ANGINA PECTORIS NEC/NOS - 436 - CVA - ALLERGIC RHINITIS NOS - OSTEOARTHROS NOS-UNSPEC - ABN INVOLUN MOVEMENT NEC - SKIN SENSATION DISTURB - ABN DOULA FUNCT STUDY NEC - Pain in joint involving lower leg - *Chronic Hyperactive airway disease - Persistent Cough - Persistent Aftercare following joint replacement - Healing Bronchitis, Acute - Recurrent Sinusitis, Acute - Recurrent Gynecological examination - *Routine Decreased libido - *Acute Routine Medical Exam - *Routine NEED FOR PROPHYLACTIC VACCINATION WITH COMBINED [id number] ( DTP) (DTAP) VACCINE - Pneumonia Vaccine [...] Dosage Effective Dates (start - stop) Status POTASSIUM (unknown strength) - Active Nitrostat 0.3 mg sublingual tablet [...] Height Weight Pulse Rate Blood Pressure Temperature Unknown Procedures Procedure Date Unknown Encounters Encounter Location Date Patient Visit [facility] Ophthamology Patient Visit Conversion Patient Visit [facility] Patient Visit [facility] 21st Patient Visit [facility] Patient [facility] Patient [facility] Patient Visit [facility] Patient Visit [facility] E21 Patient Visit [facility] E21 Patient Visit [facility] E21 OB Patient Visit [facility] E21 Patient Visit [facility] E21 Patient Visit [facility] [place] Patient Visit [facility]21 Patient Visit [facility] E21 Patient Visit [facility] [place] Patient Visit [facility] E21 Patient Visit [facility] E21 Patient Visit [facility] [place] Patient Visit [facility] Surg Patient Visit [facility] E21 Patient Visit [facility] Ortho Patient Visit [facility] E21 Patient Visit [facility] E21 Patient Visit [facility] E21 Patient Visit [facility] E21 Patient Visit [facility] ASC Patient Visit [facility] Ortho Patient Visit [facility] E21 Patient Visit [facility] E21 Patient Visit [facility] E21 Patient Visit [facility] [place] Patient Visit [facility] Patient Visit [facility] Surg Patient Visit [facility]21 [facility] Ortho Patient Visit Patient Visit [facility] E21 Patient Visit [facility] E21 Patient Visit [facility] Advance Directives Directive Effective Date Unknown
--- OUTSIDE RECORDS SUMMARY | 2017-01-13 22:21 | XMS REPORT | Continuity of Care Document ---
Author Author Beth Mosquera Organization Ambulatory Address [address] [place] [address] Phone Unavailable Care Team Providers Care Graphic Production Artist Name Role Phone Aleksandar Parson PP Unavailable Payers Payer name Insurance type Covered libertarian ID Authorization(s) Unknown Problems Condition Effective Dates (start - stop) Clinical Status HYPOTHYROIDISM NOS - PURE HYPERCHOLESTEROLEM - HYPERTENSION NOS - ANGINA PECTORIS NEC/NOS - 436 - CVA - ALLERGIC RHINITIS NOS - OSTEOARTHROS NOS-UNSPEC - ABN INVOLUN MOVEMENT NEC - SKIN SENSATION DISTURB - ABN VALVE REPAIRER RECLAMATION FUNCT STUDY NEC - Routine Medical Exam - *Routine NEED FOR PROPHYLACTIC VACCINATION WITH COMBINED [id number] ( DTP) (DTAP) VACCINE - Pneumonia Vaccine - Sexual dysfunction - *Acute Elevated liver enzymes - Persistent Hypertension, Unspecified - *Poor control Influenza Vaccine - Pain in joint, lower leg - *Worse Primary osteoarthritis of right knee - *Symptomatic Medial meniscus tear - *Symptomatic Follicular cancer of thyroid - *Acute Blepharitis, unspecified - *Acute Conjunctivitis, unspecified - *Acute Osteoarthrosis, localized, not specified whether primary or secondary, involving lower leg - Healing Pharyngitis, Acute - *Acute Preoperative examination, unspecified - *Stable Knee joint replacement - *Stable Follow-up examination, [...] intolerance - *Chronic Memory impairment - *Chronic Allergic rhinitis, cause unspecified - Recurrent Pain [...] Dosage Effective Dates (start - stop) Status Nitrostat 0.[address] ONE TAB UNDER TONGUE EVERY 5 MINUTES AT ONSET OF CHEST PAIN MAXIMUM OF THREE TABS - Active Tirosint 125 mcg capsule take 1 capsule (125MCG) by oral route every day 125 MCG - Active Niaspan 500 mg tablet,extended release take 1 tablet (500MG) by oral route every day at bedtime after a low-fat snack 500 MG - Active lidocaine 2 % Mucosal Gel Apply small amount to posterior vagina as directed. - Active amlodipine 5 mg tablet Take 1 tablet by mouth every day. - Active wheelchair USE NEEDED. - Active baclofen 20 mg tablet take [...] Unknown Encounters Encounter Location Date Patient Visit [facility] Mur Card Patient Visit Conversion Patient Visit [address] Patient Visit [facility] Ortho Patient Visit [address] Patient Visit [facility] Ortho Patient Visit [address] Patient [address] Patient [address] Patient Visit [facility] [place] Patient Visit [facility] Surg Patient Visit [address] Patient Visit [facility] Ortho Patient Visit [address] Patient [address] Patient Visit [facility] Ortho Patient Visit [address] Patient [address] Patient [facility] [place] Patient Visit [facility] [place] Patient Visit [address] Patient [address] Patient Visit [facility] Ortho Patient Visit Patient Visit [address] Patient Visit [address] Patient Visit [address] Advance Directives Directive Effective Date Unknown
--- OUTSIDE RECORDS SUMMARY | 2017-01-13 22:21 | XMS REPORT | Referral Summary ---
Author Author [facility] Organization [facility] Address Unknown Phone Unavailable Care Team Providers Care Machine Riveter Name Role Phone Josselin Parson Primary Care Physician [phone] Encounter VC Date(s): 11/06/16 - 11/06/16 [facility] [address] [place], [place] [address] Discharge Diagnosis: Crystalluria Discharge Diagnosis: Incontinence Discharge Diagnosis: Female dyspareunia Discharge Disposition: 01-Home or Self Care Attending Physician: Hector Roth MD Admitting Physician: Hector Roth MD Referring Physician: Aleksandar Parson DO Vital Signs No data available for this section Problem List Condition Effective Dates Status Health Status Informant Abnormal involuntary 06/16/10 Active movements(Confirmed) 1 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 Start Date: 08/30/15 Status: Ordered buPROPion 150 mg/24 hours (XL) oral tablet, extended release See Instructions, TAKE 1 TABLET BY MOUTH EVERY DAY, # 90 tabs, 1 Refill(s), [facility] : [id number], TAKE 1 TABLET BY MOUTH EVERY DAY Start Date: 07/09/16 Status: Ordered lidocaine 3% topical gel 1 ann, Topical, BID, as needed for pain, # 28.5 g, 0 Refill(s), Pharmacy: [facility] pharmacy #[id number] Start Date: 10/27/15 Status: Ordered metFORMIN 500 mg oral tablet 500 mg 1 tabs, Oral, Daily, # 90 tabs, 3 Refill(s), [id number], 1 tabs Oral Daily Start Date: 05/03/15 Status: Ordered Miscellaneous DME DME Item ACCU CHECK GLUCOSE METER, LANCETS, AND TEST STRIPS TEST Q AM - FASTING DX: 250.00, See Instructions, # 1 Each, 0 Refill(s), Pharmacy: [facility]/ pharmacy #[id number], ACCU CHECK GLUCOSE METER, LANCETS, AND TEST STRIPS; TEST Q AM - FASTING; DX: 250.00... Start Date: 02/03/15 Status: Ordered nitroglycerin 0.3 mg sublingual tablet 0.3 mg, SubLingual, q5min, not to exceed 3 doses/15 min--if pain persists, seek medical attention, # 10 tabs, 0 Refill(s), [id number], 0.3 mg SubLingual q5min,Instr:not to exceed 3 doses/15 min--if pain persists, seek medical attention Start Date: 10/27/15 Status: Ordered Synthroid 125 mcg (0.125 mg) oral tablet 125 mcg 1 tabs, Oral, Daily, # 90 tabs, 2 Refill(s), Pharmacy: [id number], 1 tabs Oral Daily Start Date: 12/13/15 Status: Ordered Welchol 625 mg oral tablet See Instructions, TAKE 6 TABLETS DAILY, # 540 tabs, 1 Refill(s), Pharmacy: [facility] [id number], TAKE 6 TABLETS DAILY Start Date: 07/06/16 [...] Extracted from: Title: Office Visit Note Author: Hector Roth MD Date: 11/06/16 Assessment/Plan 1.Incontinence Mild. Patient reassured. She certainly does notneed surgery. I told her weight loss would be helpful. 2.Crystalluria Renal colic CT scan 3.Female dyspareunia She agrees to see electronics inspector in near future. I recommended she get Monistat suppositoriesa try over the next week. Follow-up emphasized. She agreed to return to my officein a month's time.
--- OUTSIDE RECORDS SUMMARY | 2017-01-13 22:21 | XMS REPORT | Referral Summary ---
Author Author [facility] Organization [facility] Address Unknown Phone Unavailable Care Team Providers Care Facility Service Associate Name Role Phone Josselin Parson Primary Care Physician [phone] Encounter VC Date(s): 12/18/16 - 12/18/16 [facility] [address] [place] [address] Discharge Diagnosis: Skin lesion Discharge Disposition: 01-Home or Self Care Attending Physician: Aleksandar Parson DO Vital Signs Most recent to 1 oldest [Reference Range]: Peripheral Pulse 90 bpm Rate [60-100 bpm] (12/18/16 3:41 PM) Blood Pressure 124/72 mmHg [90-140/60-90 mmHg] (12/18/16 3:41 PM) SpO2 94 % (12/18/16 3:41 PM) Problem List Condition Effective Dates Status Health Status Informant Abnormal involuntary 06/16/10 Active movements(Confirmed) 1 Othr 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 Start Date: 08/30/15 Status: Ordered buPROPion 150 mg/24 hours (XL) oral tablet, extended release See Instructions, TAKE 1 TABLET BY MOUTH EVERY DAY, # 90 tabs, 1 Refill(s), eRx : [facility] [id number], TAKE 1 TABLET BY MOUTH EVERY DAY Start Date: 07/09/16 Status: Ordered lidocaine 3% topical gel 1 ann, Topical, BID, as needed for pain, # 28.5 g, 0 Refill(s), Pharmacy: [facility] pharmacy #[id number] Start Date: 10/27/15 Status: Ordered metFORMIN 500 mg oral tablet 500 mg 1 tabs, Oral, Daily, # 90 tabs, 3 Refill(s), [id number], 1 tabs Oral Daily Start Date: 05/03/15 Status: Ordered Miscellaneous DME DME Item ACCU CHECK GLUCOSE METER, LANCETS, AND TEST STRIPS TEST Q AM - FASTING DX: 250.00, See Instructions, # 1 Each, 0 Refill(s), Pharmacy: [facility] pharmacy #[id number], ACCU CHECK GLUCOSE METER, LANCETS, AND TEST STRIPS; TEST Q AM - FASTING; DX: 250.00... Start Date: 02/03/15 Status: Ordered nitroglycerin 0.3 mg sublingual tablet 0.3 mg, SubLingual, q5min, not to exceed 3 doses/15 min--if pain persists, seek medical attention, # 10 tabs, 0 Refill(s), [id number], 0.3 mg SubLingual q5min,Instr:not to exceed 3 doses/15 min--if pain persists, seek medical attention Start Date: 10/27/15 Status: Ordered Synthroid 125 mcg (0.125 mg) oral tablet 125 mcg 1 tabs, Oral, Daily, # 90 tabs, 2 Refill(s), Pharmacy: [facility] [id number], 1 tabs Oral Daily Start Date: 12/13/15 Status: Ordered Welchol 625 mg oral tablet See Instructions, TAKE 6 TABLETS DAILY, # 540 tabs, 1 Refill(s), Pharmacy: [facility] [id number], TAKE 6 TABLETS DAILY Start Date: 07/06/16 Status: Ordered Results No data available for this section Immunizations Given and Recorded Vaccine Date Status Refusal Reason tetanus/diphth/pertuss (Tdap) adult/adol 05/19/13 Recorded influenza virus vaccine, inactivated 10/26/15 Given influenza virus vaccine, inactivated1 12/9/14 Recorded influenza virus vaccine, live 08/12/13 Given [...] Visit Note Author: Aleksandar Parson DO Date: 12/18/16 Assessment/Plan 1.Skin lesion Discussed with patient that this is very suspicious for squamous cell carcinoma Dermatology evaluation
[2017-01-13 22:33] VITALS: Ht 157.5 cm; Wt 86.1 kg
--- OUTSIDE RECORDS SUMMARY | 2017-01-13 23:08 | XMS REPORT | Continuity of Care Document ---
Author Author [facility] Organization [facility] Address Unknown Phone Unavailable Allergies Medications Problems [...] PLATELET COUNT 182 k/cumm 150-400 METABOLIC PANEL, [facility] - 06/20/13 04:46 POTASSIUM 3.3 mmol/L [...] Status Pt. Type Provider Facility Loc./Unit Complaint [id number] 09/22/2013 08:45:00 2012 17:50:00 DIS Outpatient Francoise IRWIN, [facility] [place] [id number] 09/15/2013 10:34:00 2012 10:34:00 DIS Outpatient Francoise IRWIN, [facility] [place] [id number] 06/18/2013 05:04:00 2012 14:09:00 DIS Inpatient Francoise IRWIN, [facility] W.9[place] [id number] 06/11/2013 13:11:00 2012 13:11:00 DIS Outpatient Francoise IRWIN, [facility] [place]
--- NOTE | 2017-01-13 23:15 | NUR ---
IMAGING PT TO IMAGING VIA WHEEL CHAIR AT THIS TIME.
[2017-01-13 23:16] LABS: BASOPHILS % (AUTO) 0.2 % (0-2); EOSINOPHILS # (AUTO) 0.1 T/MM3 (0-0.5); HCT - HEMATOCRIT 40.9 % (36-46); HGB - HEMOGLOBIN 13.6 GM/DL (12-16); IMMATURE GRANULOCYTE # (AUTO) 0.05 T/MM3 (0.00-0.03); IMMATURE GRANULOCYTE % (AUTO) 0.6 % (0.0-0.5); LYMPHOCYTES # (AUTO) 2.1 T/MM3 (1-4.8); LYMPHOCYTES % (AUTO) 25.2 % (23-45); MEAN CORPUSCULAR HGB 28.7 UUG (26-34); MEAN CORPUSCULAR HGB CONC(MCHC 33.3 GM/DL (31-37); MEAN CORPUSCULAR VOLUME 86.3 UM3 (80-100); MEAN PLATELET VOLUME 10.7 UM3 (9.4-12.4); MONOCYTES # (AUTO) 0.6 T/MM3 (0-0.8); NEUTROPHILS #(AUTO)-ABSOLUTE 5.5 T/MM3 (1.8-7.7); RED BLOOD COUNT 4.74 M/MM3 (4.00-5.20); WBC - WHITE BLOOD COUNT 8.3 T/MM3 (4.5-11.0)
[2017-01-13 23:19] LABS: BLOOD, URINE NEGATIVE (NEGATIVE); COLOR,URINE YELLOW (YELLOW); LEUKOCYTE ESTERASE ,URINE NEGATIVE (NEGATIVE); NITRITE,URINE NEGATIVE (NEGATIVE); UROBILINOGEN,URINE 0.2 EU/DL (NORMAL)
--- NOTE | 2017-01-13 23:20 | NUR ---
IMAGING PT RETURN FROM IMAGING AT THIS TIME.
[2017-01-13 23:21] LABS: ANION GAP 8 MEQ/L (5-15); BUN/CREATININE RATIO 36 RATIO (6-26); CALCIUM 9.9 MG/DL (8.4-10.2); CHLORIDE 107 MEQ/L (98-107); CO2 - CARBON DIOXIDE 28 MEQ/L (22-30); CREATININE 0.7 MG/DL (0.7-1.2); GLOMERULAR FILTRATION RATE 84; GLUCOSE 112 MG/DL (65-110); POTASSIUM 4.2 MEQ/L (3.6-5); SODIUM 143 MEQ/L (134-144)
--- NOTE | 2017-01-13 23:43 | ERPDOC ---
Departure Disposition Decision Date: Jan 13, 2017 Disposition Decision Time: 23:59 Disposition: 01 DISCHARGED HOME, SELF-CARE Impression Impression Impression: Primary Impression: Numbness and tingling Severity: Moderate Condition: Stable Seen By: Mid-level only Patient Instructions: Paresthesia (ED) Problems/Meds/Labs Reviewed?: Yes Medications reviewed and manag: Yes Additional Instructions: I do want you to monitor your symptoms. If you continue to have symptoms then please follow up with your PCP this week. You may need further testing of your thyroid or an MRI. If any new issues/concerns then return to ER. Follow up care ordered?: Yes Mental Status: Alert HPI - General Medical General Chief Complaint: General Stated Complaint: NUMBNESS ON LIP AND TONGUE Time Seen by Provider: 22:21 Source: patient Exam Limitations: no limitations HPI - General Medical Initial Comments Yesterday she had noticed some numbness of the lower lip as well as the tip of her tongue. This did go away and come back twice over the last 24 hours. She also has felt a bit like her left arm is just "hanging". She is not having any headache but earlier today had some slight blurred vision like she needed to adjust her glasses. She has a history of CVA about 3 years ago where she had just numbness in the left arm and up onto her face.This happened as a reaction to the dye for a nuclear medication stress test. She does have some residual numbness in her fingertips from the CVA. Denies any fever or chills or nausea/ vomiting. Occurred At: home Onset: Gradual Duration: 12-24 hrs Severity: mild Associated Symptoms: DENIES: chest pain, cough, diaphoresis, fever/chills, headaches, loss of appetite, malaise, nausea/vomiting, rash, seizure, shortness of breath, syncope, weakness Hx of Similar Symptoms: Yes Allergies: Coded Allergies: Penicillins (Verified Allergy, Unknown, 01/13/17) Sulfa (Sulfonamide Antibiotics) (Verified Allergy, Unknown, 01/13/17) caffeine (Verified Allergy, Unknown, 01/13/17) dobutamine (Verified Allergy, Unknown, 01/13/17) Past History Past Medical History Metabolic: hypercholesterolemia, hypertension, hypothyroidism Cardiac: CAD Neurological: CVA Surgical History Reproductive/: , hysterectomy Joint: knee Family History Family History: Negative Social History Smoking Status: Never smoker Substance Use Type: does not use Alcohol Intake: none Review of Systems Constitutional Constitutional: DENIES: appetite decrease, chills, dizziness, fatigue, fever, weakness Eyes Vision: DENIES: blurring, double vision ENMT Ears: DENIES: drainage, pain Sinuses: DENIES: congestion, rhinorrhea Mouth/Throat: DENIES: painful swallowing, scratchy throat, sore throat Cardiovascular Cardiac: DENIES: chest pain, orthopnea Rhythm/Rate: DENIES: irregular beat, palpitations Pulmonary Respiratory: DENIES: cough, dyspnea, sputum GI Upper Abdomen: DENIES: nausea, pain, vomiting Lower Abdomen: DENIES: constipation, diarrhea, pain General: DENIES: dysuria, frequency, urgency Integumentary Skin: DENIES: color change, lesion, rash Neurological General: numbness (on the bottom lip and the tip of her tongue), tingling ( lower lip and tip of her tongue), weakness (slight weakness in the left arm), DENIES: headache, paralysis/paresis, syncope, tremor Physical Exam General General Nourishment: well nourished, well developed, appears stated age, no acute distress, adult General Body Habitus: well groomed Vitals and Pain First Documented Vital Signs Date Time Temp Pulse Resp B/P Pulse Ox O2 Delivery O2 Flow Rate FiO2 01/13/17 22:33 98.5 75 17 160/73 95 Room Air Weight: Kilograms: 86.100 Height (feet): 5 Height (inches): 2.00 Triage Pain Scale: RN VS reviewed by Provider: Yes Normal Exams: Head: Normocephalic w/o trauma Eyes: Pupils are PERRLA w/ EOMI, No scleral icterus, irritation, or foreign bodies noted Neck: Full range of motion, without adenopathy, JVD, bruits or thyromegaly Chest/Resp: Clear all ngo, with good airflow, and symmetry bilaterally CV: Regular rate and rhythm, without murmur or gallop, Pulses 2+ all extremities, capillary refill, <2 seconds all ext., no pedal edema noted Abdomen: Bowel sounds positive, soft, non-tender, non-distended, no hepatosplenomegaly, masses or bruits noted Lymphatic: No lymphadenopathy, or lymphedema noted Integumentary: No rashes, hives, or bruising noted Neurologic: Patient is alert, and oriented, cranial nerves, motor/sensory/ cerebellar, exams w/o gross deficits, to observation Psychiatric: Patient exhibits, appropriate attention, emotion and affect ENMT (brief) ENMT Brief: FOUND: TM clear, TM good light reflex, mucosa moist, normal dentition, normal tonsils, NOT FOUND: nasal erythema, nasal exudate, nasal swelling, pharnyx erythema, tonsillar deviation Differential Diagnoses Considering: Acute MD, Hypo/Hyperglycemia, Hypo/Hyperkalemia, Hypo/ Hypernatremia, Intracranial Hemorrhage, Medication Effect, Metabolic, Other ( hypocalcemia, hypercalcemia) Progress Results/Orders Orders Procedure Category Date Status Time EKG EKG 01/13/17 Logged Troponin I W LAB 01/13/[address] Head W/O Contrast CT 01/13/17 Logged Ua, Dip Wreflex LAB 01/13/17 Complete Microsc & Library Clerical Assistant 22:36 Cbc W/Auto LAB 01/13/17 Complete Diff-Reflex Manual Bmp - Basic Metabolic LAB 01/13/17 Complete Panel Wrist Splint MENDOZA 01/13/17 In Process 23:11 Lab Results Laboratory Tests Test 01/13/17 23:04 01/13/17 23:14 White Blood Count 8.3T/MM3 Red Blood Count 4.74M/MM3 Hemoglobin 13.6GM/DL Hematocrit 40.9% Mean Corpuscular Volume 86.3UM3 Mean Corpuscular Hemoglobin 28.7UUG Mean Corpuscular Hemoglobin Concent 33.3GM/DL RDW Standard Deviation 48.1FL Platelet Count 256T/MM3 Mean Platelet Volume 10.7UM3 Immature Granulocyte % (Auto) 0.6% Neutrophils (%) (Auto) 66.0% Lymphocytes (%) (Auto) 25.2% Monocytes (%) (Auto) 7.0% Eosinophils (%) (Auto) 1.0% Basophils (%) (Auto) 0.2% Absolute Immature Granulocyte (auto 0.05T/MM3 Absolute Neutrophils (auto) 5.5T/MM3 Absolute Lymphocytes (auto) 2.1T/MM3 Absolute Monocytes (auto) 0.6T/MM3 Absolute Eosinophils (auto) 0.1T/MM3 Absolute Basophils (auto) 0.0T/MM3 Turbidity < 20 Sodium Level 143MEQ/L Potassium Level 4.2MEQ/L Chloride Level 107MEQ/L Carbon Dioxide Level 28MEQ/L Anion Gap 8MEQ/L Blood Urea Nitrogen 25.0MG/DL Creatinine 0.7MG/DL Glomerular Filtration Rate Calc 84 BUN/Creatinine Ratio 36RATIO Glucose Level 112MG/DL Calculated Osmolality 280MOSM/KG Calcium Level 9.9MG/DL Icterus Index < 2 Troponin I < 0.012ng/ml Chemistry Specimen Hemolysis < 15 Urine Collection Type Cleancatch-midstream Urine Color Yellow Urine Turbidity Clear Urine pH 6.5 Urine Specific [place] 1.020 Urine Protein Negative Urine Glucose (UA) Negative Urine Ketones Negative Urine Blood Negative Urine Nitrite Negative Urine Bilirubin Negative Urine Urobilinogen 0.2EU/DL Urine Leukocyte Esterase Negative Urinalysis Comment Microscopic not ind. Progress Progress CBC, BMP, troponin, U/A, and CT today were negative. Will go ahead and let her go home. I did talk with her that if these symptoms persist then to follow up this week with her primary care provider. She may need her thyroid check, an MRI , or review of the new medications that she has been taking for her cholesterol. CT CT : Reason for Exam: numbness/tingling of face CT: Head no contrast Interpretation: Normal STEPHANIE MILES APRN Jan 13, 2017 23:43
[2017-01-14 00:20] VITALS: BP 150/73; PULSE 65; RESP 17; TEMP 98.5; O2SAT 94
--- NOTE | 2017-01-14 00:20 | NUR ---
DEPART PT GIVEN DI FOR PARESTHESIA AND F/U. PT VERBALIZES UNDERSTANDING OF DI. QUESTIONS ASKED/ANSWERED - DENIES FURTHER QUESTIONS/NEEDS AT THIS TIME. PERSONAL BELONGINGS GATHERED. PT AMBULATED/ESCORTED TO ED EXIT - GAIT STABLE, NO SIGN OF DISTRESS.
--- NOTE | 2017-01-14 08:08 | DI ---
Indication: ITS.REASON: numbness on tongue PROCEDURE: CT HEAD W/O CONTRAST: Encounter: Initial Comparison: None Technique: Axial CT images through the head were performed without contrast. Iterative Reconstruction dose reducing technique was utilized. FINDINGS: The ventricles are of normal size, shape, and contour for the patient's age. There are scattered areas of low attenuation in the white matter which most likely represent changes from chronic microvascular ischemia. The brainstem, cerebellum, and cerebral hemispheres otherwise have a normal morphology and CT attenuation. There is no evidence of midline displacement. No hemorrhage, signs of acute territorial stroke, mass effect, mass lesions, or edema is evident. The visualized portions of the skull base, midface, and calvarium demonstrate no abnormality. The paranasal sinuses are well aerated and free of significant disease. The tympanic and mastoid cavities appear normal. IMPRESSION: No acute intracranial abnormality or hemorrhage. There is a preliminary report by [facility]. .
== END 2017-01-14 00:20 | disposition home or self-care (01) ==
LOC: ED 22:14
DX: R20.0 Anesthesia of skin (principal); R20.2 Paresthesia of skin; H53.8 Other visual disturbances; I10 Essential (primary) hypertension; Z86.73 Personal history of transient ischemic attack (TIA), and cerebral infarction without residual deficits
CPT/HCPCS: 36415; 80048; 81003; 84484; 85025; 93005

== ENCOUNTER 2017-01-21 09:01 | Emergency (ER) | payer MEDICARE ==
[~2017-01-21] VITALS: Ht 159.4 cm; Wt 86.0 kg
[2017-01-21 09:05] VITALS: Ht 159.4 cm; Wt 86.0 kg
--- OUTSIDE RECORDS SUMMARY | 2017-01-21 09:05 | XMS REPORT | Continuity of Care Document ---
Author Author [facility] Organization [facility] Address Unknown Phone Unavailable Care Team Providers Care Dials Inspector Name Role Phone SAHARA BLANCO Primary Care Physician [phone] Insurance Providers Guarantor Deysi Belcher Address [address] [id number] Email DENIED/01/14/17 Payer [employer] Policy Number [id number] Subscriber's Name Deysi Belcher Relationship 18 Self Chief Complaint and Reason for Visit Chief Complaint General Reason for Visit [id number] Problems Active Problems Medical Problem Onset Date Status Numbness and tingling Unknown Acute Medications Current Home Medications Medication Dose Units Route Directions Days Qty Instructions Start Date Amlodipine Besylate (Norvasc) 5 Mg Tablet 10 Daily 11/23/11 Aspirin 325 Mg Tablet 325 Mg Oral Daily 11/23/11 Atenolol 25 Mg Tablet 25 Mg Oral Daily 11/23/11 Calcium Carbonate/Vitamin D3 (Calcium + D 600 Mg Tablet) 1 Tab Tablet 1 Tab Oral Daily 11/23/11 Colesevelam Hcl (Welchol) 625 Mg Tablet 625 Mg Oral Three Times A Day 2 11/23/11 Isosorbide Mononitrate (Imdur) 30 Mg Tablet 30 Mg Oral Daily 23/10 Joint Support Daily 11/23/11 Levothyroxine Sodium 125 Mcg Tablet 125 Mcg Oral 11/23/11 Nitroglycerin (Nitrostat) 0.3 Mg Tab.subl 0.3 Mg Sublingual As Needed 11/23/11 Ultimatecare One 1 Daily 11/23/11 Vitamin B Complex 1 Cap Capsule 1 Cap Oral Daily 11/23/11 Past Home Medications Medication Directions Ordered Status Levothyroxine Sodium 112 Mcg Tablet, 112 Mcg Oral Daily 11/23/11 Discontinued Social History Social History Problem Response Recorded Date/Time Onset Date Status Hx Alcohol Use No 01/13/2017 11:00pm Not Applicable Not Applicable Query Response Start Date Stop Date Smoking Status Unknown if ever smoked Hospital Discharge Instructions No hospital discharge instructions. Plan of Care Discharge Date 01/14/17 12:20am Disposition 01 DISCHARGED HOME, SELF-CARE Condition at Discharge Stable Instructions/Education Provided Paresthesia (ED) Prescriptions See Medication Section Referrals SAHARA BLANCO Address: [address] [place] [id number] Additional Instructions/Education I do want you to monitor your symptoms. If you continue to have symptoms then please follow up with your PCP this week. You may need further testing of your thyroid or an MRI. If any new issues/concerns then return to ER. Care Plan and Goals Physician Care Plan Problem:Numbness of lips and tongue Goal: Follow up with primary care provider Instructions: Take medications and follow care plan as discussed/written Functional Status No functional status results. Allergies, Adverse Reactions, Alerts Allergen Type Severity Reaction Status Last Updated Penicillin Allergy Unknown Active 01/13/17 Sulfa (Sulfonamide Antibiotics) Allergy Unknown Active 01/13/17 Caffeine Allergy Unknown Active 01/13/17 Dobutamine Allergy Unknown Active 01/13/17 Immunizations No immunization records. Vital Signs Acute Vital Signs Vital Response Date/Time Temperature (Fahrenheit) 98.5 deg F (96.8 - 99.1) 01/14/2017 12:20am Temperature (Calculated Celsius) 36.22180 degrees C (36.0 - 37.3) 01/14/2017 12:20am Pulse Rate (adult) 65 bpm (60 - 100) 01/14/2017 12:20am Respiratory Rate 17 breaths/min (10 - 20) 01/14/2017 12:20am O2 Sat by Pulse Oximetry 94 % (90 - 100) 01/14/2017 12:20am Blood Pressure 150/73 mm Hg 01/14/2017 12:20am Blood Pressure 150/73 mm Hg 01/14/2017 12:20am Height (Feet) 5 feet 01/13/2017 10:33pm Height (Inches) 2.00 inches 01/13/2017 10:33pm Weight (Kilograms) 86.100 kg 01/13/2017 10:33pm Body Mass Index (BMI) 34.0 01/13/2017 10:33pm Results Laboratory Results Test Name Result Units Flags Reference Collection Date/Time Result Date/ Time Comments White Blood Count 8.3 T/MM3 4.5-11.0 01/13/2017 11:04pm 01/13/2017 11: 16pm Red Blood Count 4.74 M/MM3 4.00-5.20 01/13/2017 11:04pm 01/13/2017 11: 16pm Hemoglobin 13.6 GM/DL 12-16 01/13/2017 11:04pm 01/13/2017 11:16pm Hematocrit 40.9 % 36-46 01/13/2017 11:04pm 01/13/2017 11:16pm Mean Corpuscular Volume 86.3 UM3 80-100 01/13/2017 11:04pm 01/13/2017 11:16pm Mean Corpuscular Hemoglobin 28.7 UUG 26-34 01/13/2017 11:04pm 2016 11:16pm Mean Corpuscular Hemoglobin Concent 33.3 GM/DL 31-37 01/13/2017 11:04pm 01/13/2017 11:16pm RDW Standard Deviation 48.1 FL 36.9-50.2 01/13/2017 11:04pm 01/13/2017 11:16pm Platelet Count 256 T/MM3 130-400 01/13/2017 11:04pm 01/13/2017 11:16pm Mean Platelet Volume 10.7 UM3 9.4-12.4 01/13/2017 11:04pm 01/13/2017 11 :16pm Neutrophils (%) (Auto) 66.0 % 33-66 01/13/2017 11:04pm 01/13/2017 11: 16pm Lymphocytes (%) (Auto) 25.2 % 23-45 01/13/2017 11:04pm 01/13/2017 11: 16pm Monocytes (%) (Auto) 7.0 % 0-9.0 01/13/2017 11:04pm 01/13/2017 11:16pm Eosinophils (%) (Auto) 1.0 % 0-4 01/13/2017 11:04pm 01/13/2017 11:16pm Basophils (%) (Auto) 0.2 % 0-2 01/13/2017 11:04pm 01/13/2017 11:16pm Immature Granulocyte % (Auto) 0.6 % H 0.0-0.5 01/13/2017 11:04pm 2016 11:16pm Absolute Neutrophils (auto) 5.5 T/MM3 1.8-7.7 01/13/2017 11:04pm 2016 11:16pm Absolute Lymphocytes (auto) 2.1 T/MM3 1-4.8 01/13/2017 11:04pm 2016 11:16pm Absolute Monocytes (auto) 0.6 T/MM3 0-0.8 01/13/2017 11:04pm 2016 11:16pm Absolute Eosinophils (auto) 0.1 T/MM3 0-0.5 01/13/2017 11:04pm 2016 11:16pm Absolute Basophils (auto) 0.0 T/MM3 0-0.2 01/13/2017 11:04pm 2016 11:16pm Absolute Immature Granulocyte (auto 0.05 T/MM3 H 0.00-0.03 01/13/2017 11: 04pm 01/13/2017 11:16pm Icterus Index < 2 0-7 01/13/2017 11:04pm 01/13/2017 11:21pm Chemistry Specimen Hemolysis < 15 0-25 01/13/2017 11:04pm 01/13/2017 11:21pm 0-25: Specimen Exhibited No Hemolysis. Turbidity < 20 0-20 01/13/2017 11:04pm 01/13/2017 11:21pm Sodium Level 143 MEQ/L 134-144 01/13/2017 11:04pm 01/13/2017 11:21pm Potassium Level 4.2 MEQ/L 3.6-5 01/13/2017 11:04pm 01/13/2017 11:21pm Chloride Level 107 MEQ/L 98-107 01/13/2017 11:04pm 01/13/2017 11:21pm Carbon Dioxide Level 28 MEQ/L 22-30 01/13/2017 11:04pm 01/13/2017 11: 21pm Anion Gap 8 MEQ/L 5-15 01/13/2017 11:04pm 01/13/2017 11:21pm Blood Urea Nitrogen 25.0 MG/DL H 7-17 01/13/2017 11:04pm 01/13/2017 11: 21pm Creatinine 0.7 MG/DL 0.7-1.2 01/13/2017 11:04pm 01/13/2017 11:21pm BUN/Creatinine Ratio 36 RATIO H 6-26 01/13/2017 11:04pm 01/13/2017 11: 21pm Glomerular Filtration Rate Calc 84 01/13/2017 11:04pm 01/13/2017 11 :21pm Glucose Level 112 MG/DL H 65-110 01/13/2017 11:04pm 01/13/2017 11:21pm Calculated Osmolality 280 MOSM/KG 261-280 01/13/2017 11:04pm 2016 11:21pm Calcium Level 9.9 MG/DL 8.4-10.2 01/13/2017 11:04pm 01/13/2017 11:21pm Troponin I < 0.012 ng/ml 0-0.12 01/13/2017 11:04pm 01/13/2017 11:32pm Troponin values with a difference of 55% increase from orginal troponin value represent a true biological DELTA value. (%increase Calc=Orginal Troponin value, divided by subsequent Troponin value, multiplied by 100) Urine Collection Type CLEANCATCH-MIDSTREAM 01/13/2017 11:14pm 01/13 11:19pm Urine Color YELLOW YELLOW 01/13/2017 11:14pm 01/13/2017 11:19pm Urine Turbidity CLEAR CLEAR 01/13/2017 11:14pm 01/13/2017 11:19pm Urine Specific [place] 1.020 1.015-1.025 01/13/2017 11:14pm 2016 11:19pm Urine pH 6.5 5.0-8.0 01/13/2017 11:14pm 01/13/2017 11:19pm Urine Leukocyte Esterase NEGATIVE NEGATIVE 01/13/2017 11:14pm 2016 11:19pm Urine Nitrite NEGATIVE NEGATIVE 01/13/2017 11:14pm 01/13/2017 11: 19pm Urine Protein NEGATIVE NEGATIVE 01/13/2017 11:14pm 01/13/2017 11: 19pm Urine Glucose (UA) NEGATIVE NEGATIVE 01/13/2017 11:14pm 01/13/2017 11 :19pm Urine Ketones NEGATIVE NEGATIVE 01/13/2017 11:14pm 01/13/2017 11: 19pm Urine Urobilinogen 0.2 EU/DL NORMAL 01/13/2017 11:14pm 01/13/2017 11: 19pm Urine Bilirubin NEGATIVE NEGATIVE 01/13/2017 11:14pm 01/13/2017 11: 19pm Urine Blood NEGATIVE NEGATIVE 01/13/2017 11:14pm 01/13/2017 11:19pm Urinalysis Comment MICROSCOPIC NOT IND. 01/13/2017 11:14pm 2016 11:19pm Procedures No known history of procedures. Encounters Encounter Location Arrival/Admit Date Discharge/Depart Date Attending Provider Departed Emergency Room [facility] 01/13/17 10:14pm 01/14/17 12: 20am BESSIE LOMELI MD Recent Diagnosis
--- OUTSIDE RECORDS SUMMARY | 2017-01-21 09:07 | XMS REPORT | Continuity of Care Document ---
Author Author [facility] Organization [facility] Address Unknown Phone Unavailable Allergies Medications Problems [...] PLATELET COUNT 182 k/cumm 150-400 METABOLIC PANEL, [facility] - 06/20/13 04:46 POTASSIUM 3.3 mmol/L [...] Status Pt. Type Provider Facility Loc./Unit Complaint [id number] 09/22/2013 08:45:00 2012 17:50:00 DIS Outpatient Francoise IRWIN, [facility] [place] [id number] 09/15/2013 10:34:00 2012 10:34:00 DIS Outpatient Francoise IRWIN, [facility] [place] [id number] 06/18/2013 05:04:00 2012 14:09:00 DIS Inpatient Francoise IRWIN, [facility] W.9TN [id number] 06/11/2013 13:11:00 2012 13:11:00 DIS Outpatient Francoise IRWIN, [facility] [place]
--- NOTE | 2017-01-21 09:20 | NUR ---
ACTIVITY PT. UP TO BATHROOM TO URINATE WITH NOSE CLIP ON NOSE.
--- OUTSIDE RECORDS SUMMARY | 2017-01-21 09:20 | XMS REPORT | Continuity of Care Document ---
Author Author Organization Address Unknown Phone Unavailable Allergies Medications Problems [...] PLATELET COUNT 182 k/cumm 150-400 METABOLIC PANEL, [facility] - 06/20/13 04:46 POTASSIUM 3.3 mmol/L 3.5-5.3 [...] Status Pt. Type Provider Facility Loc./Unit Complaint [id number] 09/22/2013 08:45:00 2012 17:50:00 DIS Outpatient rFancoise IRWIN, [facility] [place] [id number] 09/15/2013 10:34:00 2012 10:34:00 DIS Outpatient Francoise IRWIN, [facility] [place] [id number] 06/18/2013 05:04:00 2012 14:09:00 DIS Inpatient Francoise IRWIN, [facility] W.9TN [id number] 06/11/2013 13:11:00 2012 13:11:00 DIS Outpatient Francoise IRWIN, [facility] [place]
[2017-01-21] MEDS ORDERED: METF500T4 PO (09:29)
[2017-01-21] MEDS ORDERED: PRED10TA PO (09:29)
[2017-01-21] MEDS ORDERED: MULT1TAB69 PO (09:32)
[2017-01-21] MEDS ORDERED: BIOT5TAB PO (09:32)
[2017-01-21] MEDS ORDERED: OMEG300C PO (09:32)
[2017-01-21] MEDS ORDERED: POTA10TA14 PO (09:32)
[2017-01-21] MEDS ORDERED: PHENYLEPHRINE 0.5% NAS ONE (09:45)
--- NOTE | 2017-01-21 09:47 | NUR ---
AMY SYNEPHRINE AMY SYNEPHRINE PLACED IN ROOM FOR DR. Jerry ZAVALA TO USE.
--- NOTE | 2017-01-21 09:51 | ERPDOC ---
Departure Disposition Decision Date: Jan 21, 2017 Disposition Decision Time: Disposition: 01 DISCHARGED HOME, SELF-CARE Impression Impression Impression: Primary Impression: Epistaxis Additional Impressions: Hypertension Hypertension type: essential hypertension Qualified Codes: I10 - Essential ( primary) hypertension Tingling of left arm and left side of face Severity: Moderate Condition: Stable Seen By: Physician only Referrals: SAHARA BLANCO (PCP) 1 Week Patient Instructions: Nosebleed (ED), Transient Ischemic Attack (ED) Problems/Meds/Labs Reviewed?: Yes Medications reviewed and manag: Yes Additional Instructions: Home to rest today. Your doctor's nurse will be calling you will follow up instructions regarding neurology evaluation. Make sure that you take your blood pressure medications as prescribed. Add a baby aspirin daily to your medications. Follow up care ordered?: Yes Mental Status: Alert, Oriented HPI General Chief Complaint: Nosebleed Stated Complaint: NOSE BLEED Time Seen by Provider: 09:12 Source: patient, RN notes reviewed, old records Exam Limitations: no limitations HPI Nosebleed Initial Comments This patient comes in after having a nosebleed that started this morning while she was at the fire station. She got up this morning and noticed that he blood pressure was quite high at home. She wanted to go to her doctor's office, but he is on vacation. So she decided to go to the fire station and have them check her blood pressure and make sure that it wasn't just her cuff that was off. While there, her nose suddenly started gushing blood. The paramedics were unable to get it stopped, so they sent her to the ER. She also had some numbness to her lips a week ago. A CT and later an MRI were both negative. They gave her a prednisone burst and told her to start it if she had any more episodes like that. two day ago she had another one so started the prednisone. Today the symptoms seem worse and rather than just being her lips, it is also her left face and her left arm feels heavy. These are similar symptoms to when she had her "stroke" in the past, which happened when she got contrast. Occurred At: other Onset: Rapid Duration: 1 hr Pain Scale: Now: 0/10 Interventions tried: TRIED: direct pressure, packing (put gauze up in nose), squeezing Modifying Factors: hypertension, DENIES: aspirin, coumadin, nasal steroid usage , plavix Associated Symptoms: other Allergies: Coded Allergies: Penicillins (Verified Allergy, Unknown, 01/13/17) Sulfa (Sulfonamide Antibiotics) (Verified Allergy, Unknown, 01/13/17) caffeine (Verified Allergy, Unknown, 01/13/17) dobutamine (Verified Allergy, Unknown, 01/13/17) Past History Past Medical History Metabolic: hypercholesterolemia, hypertension, hypothyroidism Cardiac: CAD Neurological: CVA Surgical History Reproductive/: , hysterectomy Joint: knee Social History Smoking Status: Unknown if ever smoked Substance Use Type: does not use Alcohol Intake: none Record Review Pertinent history updated: Yes Review of Systems Constitutional Constitutional: DENIES: appetite decrease, chills, dizziness, fever, weakness Eyes General: DENIES: pain Lids/Accessories: DENIES: erythema Vision: DENIES: blurring ENMT Ears: DENIES: pain Hearing: DENIES: hearing loss Balance: DENIES: vertigo Sinuses: DENIES: congestion, rhinorrhea Nose: nosebleeds, see HPI Mouth/Throat: DENIES: sore throat Teeth: DENIES: pain Cardiovascular Cardiac: DENIES: chest pain Rhythm/Rate: DENIES: palpitations Vascular: DENIES: pedal edema, unilateral swelling Pulmonary Respiratory: DENIES: cough, dyspnea, sputum GI Upper Abdomen: DENIES: heartburn/indigestion, nausea, vomiting Lower Abdomen: DENIES: blood in stool, constipation, diarrhea General: DENIES: dysuria, hematuria Female: DENIES: vaginal discharge Musculoskeletal General: DENIES: joint pain, pain Integumentary Skin: DENIES: itching, rash Neurological General: numbness, see HPI, tingling Psychiatric Psychiatric: DENIES: anxiety, depression Endocrine Endocrine: DENIES: heat/cold intolerance Hematologic/Lymphatic Hematologic/Lymphatic: DENIES: anemia, easy bruising Allergic/Immunological Allergic/Immunoligical: DENIES: hives All other Systems All Other Systems: Reviewed and Negative Exam General General Nourishment: well nourished, well developed, appears stated age, no acute distress, adult General Body Habitus: well groomed Vital Signs: RN Vital Signs have been reviewed: Yes Height (Feet): 5 Height (Inches): 2.00 [place]rak Nosebleed Nose: NOT FOUND: abrasion, deformity, ecchymosis, erythema, swelling Mouth/Pharynx: blood in pharynx, NOT FOUND: bleeding gums Comments oozing noted from Kesslebach's plexus region on septum Neurologic Mental Status: FOUND: alert, oriented, other GCS Eye Opening: (4)Spontaneous GCS Verbal: (5)Oriented GCS Motor: (6)Obeys Commands RN Documented GCS Eye Opening: Verbal: Motor: Total: Cranial Nerves: FOUND: extraocular movements, forehead movement, shoulder shrug , NOT FOUND: facial asymmetry Motor: 5: Biceps (L), Biceps (R), Finger Extensors (L), Finger Extensors (R), Triceps (L), Triceps (R), Wrist Extensors (L), Wrist Extensors (R) Unusual Movements: NOT FOUND: psycho-motor retardataion, tremor Sensation: FOUND: sharp intact, soft touch intact x4 ext Cerebellar: FOUND: [id number], rapid alternating movemen DTR's: 2+: Biceps (L), Biceps (R) Other Reflexes: FOUND: great toe movement Differential Diagnoses Considering: Dry Nasal Mucosa, Hypertension, Other Procedures Procedures Performed Procedures Performed: Nosebleed Treatment Nosebleed Treatment nose treated with guzman-synephrine spray prior to exam after >30 minutes with clamp on. Still oozing. QR powder placed in nose, no further bleeding noted. Progress Results/Orders Orders Medications Current ED Medications Phenylephrine HCl (Guzman-Synephrine) 1 spray O ONCE CARLOS Last administered on t 09:47; Start 01/21/17 at 09:45; Stop 01/21/17 at 09:46; Status DC Progress Progress Nosebleed stopped with decongestant spray and QR powder after clamping. Patient complaining of neuro symptoms. CT done -- negative. Will have PCP follow up with patient. She was referred to neurology after these symptoms started, but got a letter in the mail saying that her appointment is in June. She is frustrated with this and says if this is a stroke that waiting until June is unreasonable. This is communicated to her PCP's office and they said that they would try to work on that for her. Consult/PCP Consult/PCP : Type of discussion: Phone Consult/PCP Discussion Details Called her PCPs office in [place]. He is on vacation, but spoke with his nurse who will contact neurology. CT Date CT Interpreted for [place]: Jan 21, 2017 CT : CT: Head no contrast Interpretation: Normal MARCY ZAVALA MD Jan 21, 2017 09:51
--- NOTE | 2017-01-21 10:00 | NUR ---
STATUS PT. CALLS ME INTO ROOM CONCERNED BECAUSE SHE COUGHED UP A BLOOD CLOT. INFORM HER THAT IS NORMAL.
--- NOTE | 2017-01-21 10:45 | NUR ---
CT CT CALLED ABOUT CT OF HEAD BECAUSE PT. STATES THE NUMBNESS OF HER LIPS IS NOW SPREADING TO HER FACE AND LT. ARM.
--- NOTE | 2017-01-21 11:04 | NUR ---
RETURN PT RETURNS FROM CT.
--- NOTE | 2017-01-21 11:15 | NUR ---
REPORT REPORT GIVNE TO FLORESITA RN AND CARE TURNED OVER TO HIM.
--- NOTE | 2017-01-21 11:19 | DI ---
Indication: ITS.REASON: left facial numbness PROCEDURE: CT HEAD W/O CONTRAST: Encounter: Initial Comparison: None Technique: Axial CT images through the head were performed without contrast. Iterative Reconstruction dose reducing technique was utilized. FINDINGS: The ventricles are of normal size, shape, and contour for the patient's age. There are scattered areas of low attenuation in the white matter which most likely represent changes from chronic microvascular ischemia. The brainstem, cerebellum, and cerebral hemispheres otherwise have a normal morphology and CT attenuation. There is no evidence of midline displacement. No hemorrhage, signs of acute territorial stroke, mass effect, mass lesions, or edema is evident. There is near opacification of portions of the maxillary sinus and the cephalad aspects of the visualized sinuses. Mastoid air cells and middle ear cavities are clear.. IMPRESSION: 1. Cerebral and cerebellar atrophy and chronic microvascular ischemia. 2. Maxillary sinusitis, chronicity indeterminate. .
[2017-01-21 11:40] VITALS: BP 173/87; PULSE 71; RESP 16; TEMP 98; O2SAT 94
== END 2017-01-21 11:40 | disposition home or self-care (01) ==
LOC: ED 09:01
DX: R04.0 Epistaxis (principal); I10 Essential (primary) hypertension; R20.2 Paresthesia of skin
CPT/HCPCS: 70450; 99284; A9270